=== PATIENT | male | born 1970 | race American Indian/Alaskan Native ===

== ENCOUNTER 2017-01-22 20:27 | Emergency (ER) | payer MEDICAID, OTHER ==
[2017-01-22 20:33] VITALS: BMI 29.9
[2017-01-22 20:37] VITALS: RESP 18; O2SAT 99
[2017-01-22] MEDS ORDERED: Magnesium Citrate Oral SOL (300 ml) PO ONE (20:58)
--- NOTE | 2017-01-22 21:04 | ED PDOC ---
Arrival/HPI - General Chief Complaint: GI Problem Time Seen by Provider: 01/22/17 20:51 Historian: Patient - History of Present Illness Narrative History of Present Illness (Text): 01/22/17 20:59 46 year old male with past medical history that includes hypertension and hemorrhoids presents to the emergency department with constipation for the past three days. He states he did not try any stool softeners. Patient states he has never been constipated before. Patient states he has no abdominal surgeries in the past. Denies nausea or vomiting. Time/Duration: < week Symptom Onset: Gradual Symptom Course: Unchanged Modifying Factors (Text): None Associated Symptoms (Text): None Past Medical History - Provider Review Nursing Documentation Reviewed: Yes - Infectious Disease Hx of Infectious Diseases: None - Cardiac Hx Hypertension: Yes - Psychiatric Hx Depression: No Hx Emotional Abuse: No Hx Physical Abuse: No Hx Substance Use: No - Surgical History Hx Orthopedic Surgery: Yes (LEFT KNEE) - Anesthesia Hx Anesthesia: Yes Hx Anesthesia Reactions: No - Suicidal Assessment Feels Threatened In Home Enviroment: No Family/Social History - Physician Review Nursing Documentation Reviewed: Yes Family/Social History: Unknown Family HX Smoking Status: Light Smoker < 10 Cigarettes Daily Hx Alcohol Use: Yes Frequency of alcohol use: Socially Hx Substance Use: No Hx Substance Use Treatment: No Allergies/Home Meds Allergies/Adverse Reactions: Allergies No Known Allergies Allergy (Verified 06/02/16 09:55) Home Medications: Home Meds Medication Instructions Recorded Confirmed Lisinopril/Hydrochlorothiazide 1 tab PO DAILY 06/02/16 06/02/16 [Lisinopril-Hydrochlorothiazide 25 mg-20 mg] Metoprolol Succinate [Toprol XL] 25 mg PO DAILY 06/02/16 06/02/16 amLODIPine [Norvasc] 10 mg PO DAILY 06/02/16 06/02/16 Review of Systems - Physician Review All systems were reviewed & negative as marked: Yes - Review of Systems Cardiovascular: absent: Chest Pain Gastrointestinal: Constipation. absent: Nausea, Vomiting Neurological: absent: Dizziness Physical Exam - Physical Exam Narrative Physical Exam (Text): Constitutional: No acute distress. Head: Normocephalic. Atraumatic. Eyes: PERRL. ENT: Moist mucous membranes. Neck: Supple. Cardiovascular: Regular rate. Chest: No tenderness. Respiratory: Clear to auscultation bilaterally. GI: Soft. Nontender. Abdomen is full. Back: No CVA tenderness. Musculoskeletal: No tenderness or swelling of extremities. Skin: No rash. Neurologic: Alert, no focal deficit. Vital Signs Reviewed: Yes Vital Signs Temp Pulse Resp BP Pulse Ox 01/23/17 00:28 98.9 F 95 H 18 140/90 99 01/22/17 20:36 100.2 F H 103 H 18 154/112 H 99 Temperature: Febrile Blood Pressure: Hypertensive Pulse: Tachycardic Respiratory Rate: Normal Appearance: Positive for: Well-Appearing, Non-Toxic, Uncomfortable Pain Distress: None Mental Status: Positive for: Alert and Oriented X 3 Medical Decision Making ED Course and Treatment: Impression: 46 year old male with a past medical history that includes hypertension presents to the emergency department with constipation for the past three days. Plan: -- Magnesium Citrate, Colase -- Reassess and disposition Progress Notes: AXR shows no air fluid levels. Patient treated with fleet enema as well. Manual disimpaction revealed no stool within rectum. Advised f/u with GI for further management if persists. - RAD Interpretation Radiology Orders: 01/22/17 22:18 obstructive series [ABD 2 VIEWS (FLAT/UP OR DECUB)] [RAD] Stat - Medication Orders Current Medication Orders: Discontinued Medications Docusate Sodium (Colace) 100 mg PO STAT STA Stop: 01/22/17 20:59 Last Admin: 01/22/17 21:15 Dose: 100 MG Stool Assessment Document 01/22/17 21:15 OCS (Rec: 01/22/17 21:15 [place] [facility] [id number] Pattern Bowel Pattern Constipated Magnesium Citrate (Citrate Of Mag) 300 ml PO ONCE ONE Stop: 01/22/17 20:59 Last Admin: 01/22/17 21:15 Dose: 300 ML Sodium Phosphate (Fleet Enema) 135 ml RC STAT STA Stop: 01/22/17 22:18 Last Admin: 01/23/17 00:22 Dose: 135 ML - Scribe Statement The provider has reviewed the documentation as recorded by the Bisi Ruby Provider Scribe Attestation: All medical record entries made by the Johnsonibfatoumata were at my direction and personally dictated by me. I have reviewed the chart and agree that the record accurately reflects my personal performance of the history, physical exam, medical decision making, and the department course for this patient. I have also personally directed, reviewed, and agree with the discharge instructions and disposition. Disposition/Present on Arrival - Present on Arrival Any Indicators Present on Arrival: No History of DVT/PE: No History of Uncontrolled Diabetes: No Urinary Catheter: No History of Decub. Ulcer: No History Surgical Site Infection Following: None - Disposition Have Diagnosis and Disposition been Completed?: Yes Diagnosis: Constipation Disposition: HOME/ ROUTINE Disposition Time: 22:55 Patient Plan: Discharge Condition: STABLE Discharge Instructions (ExitCare): Constipation (ED) Prescriptions: Docusate [Colace] 100 mg PO BID #30 cap Polyethylene Glycol 3350 [Miralax] 17 gm PO DAILY #238 gm Referrals: Ligia Jaime MD [Primary Care Provider] - Follow up with primary
[2017-01-23 00:29] VITALS: BP 140/90; PULSE 95; TEMP 98.9
--- NOTE | 2017-01-23 11:15 | RAD ---
HISTORY: constipation All constipation. COMPARISON: No prior. FINDINGS: BOWEL: Normal. No obstruction. No free air. BONES: Normal. OTHER FINDINGS: None. IMPRESSION: No significant or acute findings to account for/ related to the clinical presentation. Concordant results with the preliminary interpretation rendered by the emergency department physician procedure.
== END 2017-01-23 00:33 | disposition home or self-care (01) ==
LOC: ED 20:27
DX: K59.00 Constipation, unspecified (principal)

== ENCOUNTER 2017-01-26 04:21 | Inpatient (IN) | payer MEDICAID, OTHER ==
[2017-01-26 04:40] VITALS: BMI 28.1
--- NOTE | 2017-01-26 04:48 | ED PDOC ---
Arrival/HPI - General Chief Complaint: Medical Clearance Time Seen by Provider: 01/26/17 04:35 Historian: Patient - History of Present Illness Narrative History of Present Illness (Text): 01/26/17 04:46 Hardik Callejas Jr is a 46 year old male, whose past medical history includes hypertension and hemorrhoids, who presents to the ED complaining of rectal pain with swelling for the past few days. Patient denies any fever, chills, chest pain, shortness of breath, nausea, vomiting, diarrhea, urinary symptoms, back pain, neck pain, headache, dizziness, or any other complaints. Symptom Onset: Gradual Symptom Course: Worsening Activities at Onset: Rest, Light Context: Home Past Medical History - Provider Review Nursing Documentation Reviewed: Yes - Infectious Disease Hx of Infectious Diseases: None - Cardiac Hx Hypertension: Yes - Psychiatric Hx Depression: No Hx Emotional Abuse: No Hx Physical Abuse: No Hx Substance Use: No - Surgical History Hx Orthopedic Surgery: Yes (LEFT KNEE) - Anesthesia Hx Anesthesia: Yes Hx Anesthesia Reactions: No - Suicidal Assessment Feels Threatened In Home Enviroment: No Family/Social History - Physician Review Nursing Documentation Reviewed: Yes Family/Social History: No Known Family HX Smoking Status: Light Smoker < 10 Cigarettes Daily Hx Alcohol Use: Yes Hx Substance Use: No Hx Substance Use Treatment: No Allergies/Home Meds Allergies/Adverse Reactions: Allergies No Known Allergies Allergy (Verified 01/26/17 04:38) Home Medications: Home Meds Medication Instructions Recorded Confirmed Lisinopril/Hydrochlorothiazide 1 tab PO DAILY 06/02/16 06/02/16 [Lisinopril-Hydrochlorothiazide 25 mg-20 mg] Metoprolol Succinate [Toprol XL] 25 mg PO DAILY 06/02/16 06/02/16 amLODIPine [Norvasc] 10 mg PO DAILY 06/02/16 06/02/16 Review of Systems - Physician Review All systems were reviewed & negative as marked: Yes - Review of Systems Constitutional: Normal. absent: Fevers Eyes: Normal ENT: Normal Respiratory: Normal. absent: SOB, Cough Cardiovascular: Normal. absent: Chest Pain Gastrointestinal: Other (+rectal pain/swelling). absent: Abdominal Pain, Diarrhea, Nausea, Vomiting Genitourinary Male: Normal. absent: Dysuria, Frequency, Hematuria, Urinary Output Changes Musculoskeletal: Normal. absent: Back Pain, Neck Pain Skin: Normal. absent: Rash Neurological: Normal. absent: Headache, Dizziness Endocrine: Normal Hemo/Lymphatic: Normal Psychiatric: Normal Physical Exam Vital Signs Reviewed: Yes Vital Signs Temp Pulse Resp BP Pulse Ox 01/26/17 08:42 99.1 F 121 H 18 145/83 97 01/26/17 06:46 112 H 18 140/78 98 01/26/17 04:40 98.5 F 131 H 18 170/112 H 97 Temperature: Afebrile Blood Pressure: Hypertensive Pulse: Regular Respiratory Rate: Normal Appearance: Positive for: Well-Appearing, Non-Toxic, Comfortable Pain Distress: None Mental Status: Positive for: Alert and Oriented X 3 - Systems Exam Head: Present: Atraumatic, Normocephalic Pupils: Present: PERRL Extroacular Muscles: Present: EOMI Conjunctiva: Present: Normal Mouth: Present: Moist Mucous Membranes Neck: Present: Normal Range of Motion Respiratory/Chest: Present: Clear to Auscultation, Good Air Exchange. No: Respiratory Distress, Accessory Muscle Use Cardiovascular: Present: Regular Rate and Rhythm, Normal S1, S2. No: Murmurs Abdomen: Present: Normal Bowel Sounds. No: Tenderness, Distention, Peritoneal Signs Rectal: Present: Nodule/Mass/Lesions (Cellulitis area with large mass palpated) Back: Present: Normal Inspection Upper Extremity: Present: Normal Inspection. No: Cyanosis, Edema Lower Extremity: Present: Normal Inspection. No: Edema Neurological: Present: GCS=15, CN II-XII Intact, Speech Normal Skin: Present: Warm, Dry, Normal Color. No: Rashes Psychiatric: Present: Alert, Oriented x 3, Normal Insight, Normal Concentration Medical Decision Making ED Course and Treatment: 01/26/17 04:46 Impression: 46 year old male complaining of rectal pain and swelling. Plan: -- CT Pelvis w/o contrast -- Labs, blood cultures -- IV fluids -- Zosyn -- Dilaudid -- Reassess and disposition Prior Visits: Notes and results from previous visits were reviewed. On 01/22/2017, pt was seen in the ED for constipation. Pt was d/c home. Progress Notes: 01/26/17 05:43 Case discussed with surgical technology instructor supervisor bakery sanitation dr escalera , who is aware and agrees with plan. 01/26/17 06:21 Reviewed radiology, CT Pelvis shows: 1. Proctitis with perirectal/anal abscess. 2. Incidental/non-acute findings are described above. 01/26/17 16:29 - Lab Interpretations Lab Results: 01/26/17 05:15 01/26/17 05:15 Lab Results 01/26/17 05:15: WBC 28.0 H*, RBC 4.96, Hgb 14.2, Hct 38.5 L, MCV 77.6 L, MCH 28.6, MCHC 36.9, RDW 13.8, Plt Count 265, MPV 10.4, Neutrophils % (Manual) 90 H , Band Neutrophils % 2, Lymphocytes % (Manual) 3 L, Monocytes % (Manual) 5, Sodium 135, Potassium 4.1, Chloride 95 L, Carbon Dioxide 31, Anion Gap 13, BUN 14, Creatinine 1.1, Est GFR ( Amer) > 60, Est GFR (Non-Af Amer) > 60, Random Glucose 250 H, Calcium 9.9, Total Bilirubin 1.7 H, AST 28, ALT 26, Alkaline Phosphatase 129, Total Protein 7.9, Albumin 3.8, Globulin 4.1, Albumin/ Globulin Ratio 0.9 L I have reviewed the lab results: Yes - RAD Interpretation Narrative RAD Interpretations (Text): CT Pelvis shows: Limitations: Lack of intravenous contrast. Bowel: Distal rectal wall thickening, suboptimally visualized. No obstruction. Appendix: No findings to suggest acute appendicitis. Intraperitoneal space: No significant fluid collection. No free air. Bladder: Unremarkable. No stones. Reproductive: Unremarkable as visualized. Bones/joints: No acute fracture. Soft tissues: Small LEFT inguinal hernia containing fat. Peripheral air/fluid collection about perianal region, roughly 7.1 x 5.5 x 8.6 cm, suboptimally evaluated without contrast. Moderate stranding within adjacent fat. Vasculature: Mild ectasia of common iliac arteries. Kltm-im-cgctluuo atherosclerotic disease. Lymph nodes: No pathologically enlarged lymph nodes. IMPRESSION: 1. Proctitis with perirectal/anal abscess. 2. Incidental/non-acute findings are described above. Radiology Orders: 01/26/17 05:00 PELVIS W/O PO OR IV CONTRAST [CT] Stat Wheelchair Van Driver: Radiologist - Medication Orders Current Medication Orders: Sodium Chloride (Sodium Chloride 0.9%) 1,000 mls @ 150 mls/hr IV .Q6H40M [facility] Last Admin: 01/26/17 07:41 Dose: 150 MLS/HR eMAR Start Stop Document 01/26/17 07:41 OCS (Rec: 01/26/17 07:41 OCS [facility] [id number]) Intravenous Solution Start Date 01/26/17 Start Time 07:41 Piperacillin Sod/Tazobactam Sod (Zosyn 3.375 In Ns 100ml) 100 mls @ 200 mls/hr IVPB Q6 ANALILIA PRN Reason: Protocol Stop: 01/26/17 18:29 Last Admin: 01/26/17 11:50 Dose: 200 MLS/HR eMAR Start Stop Document 01/26/17 11:50 RV (Rec: 01/26/17 11:50 RV [id number]) Intravenous Solution Start Date 01/26/17 Start Time 11:50 End Date 01/26/17 End time 12:50 Total Infusion Time 60 Vancomycin HCl (Vancomycin 1gm) 250 mls @ 167 mls/hr IVPB Q12H ANALILIA PRN Reason: Protocol Last Admin: 01/26/17 10:50 Dose: 167 MLS/HR eMAR Start Stop Document 01/26/17 10:50 RV (Rec: 01/26/17 10:50 RV [id number]) Intravenous Solution Start Date 01/26/17 Start Time 10:50 End Date 01/26/17 End time 11:50 Total Infusion Time 60 Insulin Human Lispro (Humalog Low) 0 units SC ACHS ANALILIA PRN Reason: Protocol Last Admin: 01/26/17 12:04 Dose: Not Given Non-Admin Reason: Blood Sugar Parameter [facility] Blood Glucose Document 01/26/17 12:04 RV (Rec: 01/26/17 12:04 RV [id number]) Blood Glucose Finger Stick Blood Glucose (70-120) 147 Ketorolac Tromethamine (Toradol) 30 mg IVP Q6H PRN PRN Reason: Pain, moderate (4-7) Last Admin: 01/26/17 11:52 Dose: 30 MG [facility] Pain Assessment Document 01/26/17 11:52 RV (Rec: 01/26/17 11:52 RV [id number]) Pain Reassessment Is this a pain reassessment? No Sleep Is patient sleeping during reassessment? No Presence of Pain Presence of Pain Yes Pain Scale Used Pain Scale Used Numeric Location Upper or Lower Lower Description Intensity of Pain at present 8 Radiation Location RECTUM Pain Behavior Moaning Irritability Facial Grimacing Aggravating Factors ADL's Changing Position Alleviating Factors/Management Medication Techniques Alleviating Factors Medication IVP Administration Document 01/26/17 11:52 RV (Rec: 01/26/17 11:52 RV [id number]) Charges for Administration # of IVP Administrations 1 Metoprolol Tartrate (Lopressor) 25 mg PO BID [facility] Nicotine (Nicoderm Cq) 1 patch TD DAILY ANALILIA Pantoprazole Sodium (Protonix Ec Tab) 40 mg PO ACB [facility] Last Admin: 01/26/17 10:42 Dose: 40 MG Discontinued Medications Hydromorphone HCl (Dilaudid) 2 mg IVP STAT STA Stop: 01/26/17 05:01 Last Admin: 01/26/17 05:44 Dose: 2 MG IVP Administration Document 01/26/17 05:44 SB (Rec: 01/26/17 05:44 SB [id number] Charges for Administration # of IVP Administrations 1 Hydromorphone HCl (Dilaudid) Confirm Administered Dose 1 mg .ROUTE .STK-MED ONE Stop: 01/26/17 08:25 Last Admin: 01/26/17 08:40 Dose: 1 MG Hydromorphone HCl (Dilaudid) 1 mg IVP STAT STA Stop: 01/26/17 08:16 Last Admin: 01/26/17 11:48 Dose: Not Given Non-Admin Reason: Patient Refused MAR Pain Assessment Document 01/26/17 11:48 RV (Rec: 01/26/17 11:49 RV [id number]) Pain Reassessment Is this a pain reassessment? No Sleep Is patient sleeping during reassessment? No Presence of Pain Presence of Pain Yes Pain Scale Used Pain Scale Used Numeric Description Description Constant Intensity of Pain at present 2 Acceptable Level of Pain 2 Site Observation RECTUM Sodium Chloride (Sodium Chloride 0.9%) 1,000 mls @ 80 mls/hr IV .[id number] [facility] Last Admin: 01/26/17 05:44 Dose: 80 MLS/HR eMAR Start Stop Document 01/26/17 05:44 SB (Rec: 01/26/17 05:44 SB [id number][facility] Intravenous Solution Start Date 04/02/17 Start Time 05:44 End Date 01/26/17 Piperacillin Sod/Tazobactam Sod (Zosyn 3.375 In Ns 100ml) 100 mls @ 200 mls/hr IVPB STAT STA PRN Reason: Protocol Stop: 01/26/17 05:30 Last Admin: 01/26/17 05:44 Dose: 200 MLS/HR eMAR Start Stop Document 01/26/17 05:44 SB (Rec: 01/26/17 05:44 SB [id number]) Intravenous Solution Start Date 01/26/17 Start Time 05:44 End Date 01/26/17 Sodium Chloride (Sodium Chloride 0.9%) 1,000 mls @ 120 mls/hr IV .Q8H20M [facility] Last Admin: 01/26/17 06:34 Dose: 120 MLS/HR eMAR Start Stop Document 01/26/17 06:34 SB (Rec: 01/26/17 06:34 SB [id number][facility] Intravenous Solution Start Date 01/26/17 Start Time 06:34 End Date 01/26/17 Metronidazole (Flagyl) 100 mls @ 100 mls/hr IVPB STAT STA PRN Reason: Protocol Stop: 01/26/17 07:39 Last Admin: 01/26/17 07:41 Dose: 100 MLS/HR eMAR Start Stop Document 01/26/17 07:41 OCS (Rec: 01/26/17 07:41 [facility]CS [id number][facility] Intravenous Solution Start Date 01/26/17 Start Time 07:41 Insulin Human Regular (Humulin R Med) 0 units SC ACHS ANALILIA PRN Reason: Protocol Lidocaine HCl (Lidocaine 1% (20ml)) 0 ml IJ STAT STA Stop: 01/26/17 07:32 Last Admin: 01/26/17 07:37 Dose: 20 mL - Scribe Statement The provider has reviewed the documentation as recorded by the Scribfatoumata Liang All medical record entries made by the Scribe were at my direction and personally dictated by me. I have reviewed the chart and agree that the record accurately reflects my personal performance of the history, physical exam, medical decision making, and the department course for this patient. I have also personally directed, reviewed, and agree with the discharge instructions and disposition. Disposition/Present on Arrival - Present on Arrival Any Indicators Present on Arrival: No History of DVT/PE: No History of Uncontrolled Diabetes: No Urinary Catheter: No History of Decub. Ulcer: No History Surgical Site Infection Following: None - Disposition Have Diagnosis and Disposition been Completed?: Yes Diagnosis: Perirectal abscess Disposition: HOSPITALIZED Disposition Time: 06:30 Condition: FAIR
[2017-01-26] MEDS ORDERED: HYDROmorphone 2 mg/ml ISec IVP STA (05:00)
[2017-01-26] MEDS ORDERED: Sodium Chloride 0.9% 1,000 ML IV SCH ×2 (05:00→06:30)
[2017-01-26] MEDS ORDERED: Piperacillin/Tazobact 3.375 gm 100 ML IVPB STA (05:01)
[2017-01-26 06:00] LABS: HEMATOCRIT 38.5 % (42.0-52.0); MEAN CELL VOLUME 77.6 fL (80.0-105.0); MEAN CORPUSCULAR HEMOGLOBIN 28.6 pg (25.0-35.0); MEAN CORPUSCULAR HGB CONC 36.9 g/dl (31.0-37.0); MEAN PLATELET VOLUME 10.4 fl (7.0-11.0); PLATELET COUNT 265 10^3/uL (120.0-450.0); RED CELL DISTRIBUTION WIDTH 13.8 % (11.5-14.5)
[2017-01-26 06:02] LABS: ADD MANUAL DIFF? YES
[2017-01-26 06:06] LABS: ALB/GLOB RATIO 0.9 (1.1-1.8); ALKALINE PHOSPHATASE 129 U/L (38-133); ALT/SGPT 26 U/L (7-56); AST/SGOT 28 U/L (15-59); BILIRUBIN,TOTAL 1.7 mg/dL (0.2-1.3); BLOOD UREA NITROGEN 14 mg/dL (7-21); CALCIUM 9.9 mg/dL (8.4-10.5); CARBON DIOXIDE 31 mmol/L (21-33); CHLORIDE 95 mmol/L (98-107); GFR AFRICAN-AMERICAN > 60; GLUCOSE,RANDOM 250 mg/dL (70-110); POTASSIUM 4.1 mmol/L (3.6-5.0); SODIUM 135 mmol/L (132-148); TOTAL PROTEIN 7.9 g/dL (5.8-8.3)
--- NOTE | 2017-01-26 06:20 | CT ---
EXAM: CT Pelvis Without Intravenous Contrast CLINICAL HISTORY: 46 years old, male; Pain; Perianal pain; Additional info: Rectal pain R/O abscess TECHNIQUE: Axial computed tomography images of the pelvis without intravenous contrast. This CT exam was performed using one or more of the following dose reduction techniques: automated exposure control, adjustment of the mA and/or kV according to patient size, and/or use of iterative reconstruction technique. Coronal and sagittal reformatted images were created and reviewed. COMPARISON: No relevant prior studies available. FINDINGS: Limitations: Lack of intravenous contrast. Bowel: Distal rectal wall thickening, suboptimally visualized. No obstruction. Appendix: No findings to suggest acute appendicitis. Intraperitoneal space: No significant fluid collection. No free air. Bladder: Unremarkable. No stones. Reproductive: Unremarkable as visualized. Bones/joints: No acute fracture. Soft tissues: Small LEFT inguinal hernia containing fat. Peripheral air/fluid collection about perianal region, roughly 7.1 x 5.5 x 8.6 cm, suboptimally evaluated without contrast. Moderate stranding within adjacent fat. Vasculature: Mild ectasia of common iliac arteries. Jasu-vu-hnewfgdt atherosclerotic disease. Lymph nodes: No pathologically enlarged lymph nodes. IMPRESSION: 1. Proctitis with perirectal/anal abscess. 2. Incidental/non-acute findings are described above.
[2017-01-26 06:23] LABS: BAND 2 % (0-2); NEUTROPHIL 90 % (50.0-70.0)
[2017-01-26] MEDS ORDERED: metroNIDAZOLE IV 500 mg/100 ml 100 ML IVPB STA (06:40)
--- NOTE | 2017-01-26 07:08 | CP.PCM.CON ---
History of Present Illness - History of Present Illness History of Present Illness: General Surgery Dr. Medeiros HPI: 46 y/o M presents to the ED w/ CC of worsening rectal pain. Pain began on Friday and has been getting progressively worse. Pt went to the ED on Friday and was Dx w/ constipation and sent home w/ stool softeners. Pt reports take the medication but w/ no relief. Pt states he has not been eating 2/2 severe pain w/ BM. Pt has never before had this pain. Pain does not radiate. Pt reports loose/liquid BMs. Pt admits to subjective fever and chills and lightheadedness. Pt denies dysuria, frequency, urgency, or hesitancy, but does admit to dark urine. Pt denies CP, SOB, N/V, abd pain, paresthesia, bruising/ bleeding. PMHx: HTN, DM2, hemorrhoids Meds: reviewed in chart. NKDA PSHx: L knee surgery (dislocated patella) SHx: (+) Tobacco use, 1 pack per week x 20yrs; (+) EtOH 3 beers on weekends; (- ) drug use FHx: denies Review of Systems - Review of Systems All systems: reviewed and no additional remarkable complaints except (that which stated in HPI) Past Patient History - Infectious Disease Hx of Infectious Diseases: None - Past Social History Smoking Status: Light Smoker < 10 Cigarettes Daily - CARDIAC Hx Hypertension: Yes - PSYCHIATRIC Hx Depression: No Hx Emotional Abuse: No Hx Physical Abuse: No Hx Substance Use: No - SURGICAL HISTORY Hx Orthopedic Surgery: Yes (LEFT KNEE) - ANESTHESIA Hx Anesthesia: Yes Hx Anesthesia Reactions: No Meds Allergies/Adverse Reactions: Allergies Allergy/AdvReac Type Severity Reaction Status Date / Time No Known Allergies Allergy Verified 01/26/17 04:38 - Medications Medications: Current Medications Sodium Chloride (Sodium Chloride 0.9%) 1,000 mls @ 150 mls/hr IV .Q6H40M ANALILIA Metronidazole (Flagyl) 100 mls @ 100 mls/hr IVPB STAT STA PRN Reason: Protocol Stop: 01/26/17 07:39 Physical Exam - Constitutional Appears: Non-toxic, No Acute Distress - Head Exam Head Exam: NORMAL INSPECTION - Eye Exam Eye Exam: Normal appearance - ENT Exam ENT Exam: Mucous Membranes Moist - Respiratory Exam Respiratory Exam: Clear to Auscultation Bilateral, NORMAL BREATHING PATTERN. absent: Accessory Muscle Use, Respiratory Distress - Cardiovascular Exam Cardiovascular Exam: Tachycardia, REGULAR RHYTHM, +S1, +S2 - GI/Abdominal Exam GI & Abdominal Exam: Soft. absent: Distended, Guarding, Rebound, Tenderness - Rectal Exam Additional comments: noemí-rectal TTP (+) edema, induration, fluctuance (+) clear discharge per rectum - Extremities Exam Extremities exam: Positive for: normal inspection. Negative for: pedal edema, tenderness - Neurological Exam Neurological exam: Alert, Oriented x3 - Psychiatric Exam Psychiatric exam: Normal Affect, Normal Mood - Skin Skin Exam: Dry, Intact, Normal Color, Warm Results - Vital Signs Recent Vital Signs: Last Vital Signs Temp 98.5 F 01/26/17 04:40 Pulse 112 H 01/26/17 06:46 Resp 18 01/26/17 06:46 BP 140/78 01/26/17 06:46 Pulse Ox 98 01/26/17 06:46 - Labs Result Diagrams: 01/26/17 05:15 01/26/17 05:15 - Imaging and Cardiology CT scan - pelvis Status: Image reviewed by me, Report reviewed by me Assessment & Plan - Assessment and Plan (Free Text) Assessment: 46 y/o M w/ rectal pain found to have noemí-rectal abscess and proctitis on CT. - I&D @bedside - Wound Cx - NPO (advance diet after I&D) - NS@150 - ID consult - IV abx - Dilaudid 1mg Q4 - Zofran 4mg Q4 - daily packing changes - cont home meds per Hospitalist - GI/DVT PPx Pt discussed w/ Dr. Mala Gentile DO PGY1
[2017-01-26] MEDS ORDERED: Lidocaine 1% Inj (20ml) IJ STA ×2 (07:29→07:31)
--- NOTE | 2017-01-26 07:35 | CP.PCM.HP ---
<Kip Flores - Last Filed: 01/26/17 11:34> History of Present Illness - History of Present Illness History of Present Illness: CC: Anal/rectal Pain 46 M with PMH of HTN and hemorrhoids presents to the ED with complaint of worsening anal/rectal pain. Patient stated that pain began on last Friday. He has never experienced pain like this before. He reported that the pain has been getting progressively worse. Tong went to the ED on Friday of last week. He was diagnosed with constipation and sent home on stool softeners. Patient reported taking the stool softners but there was no relief. Patient stated he has not been eating because he was trying to avoid the severe pain asssociated with BMs. He rated the pain 10/10 in severity. He described the pain as constant , sharp, and aching without radiation. Nothing alleviates pain while BMs and certain positions exacerbates it. Patient reported loose/liquid BMs over last couple days. Patient admitted to subjective fever/chills, palpitations and lightheadedness. Patient denies CP, SOB, N/V, abd pain, paresthesia, bruising/ bleeding, dysuria, frequency, urgency, or hesitancy. PMHx: HTN, hemorrhoids Meds: Colace, Miralax Allergy: NKDA PSH: L knee surgery (dislocated patella) FH: Aunt has Sickle cell Social: (+) Tobacco use, 1 pack per week for 20yrs; (+) EtOH 3 beers on weekends ; (-) drug use Present on Admission - Present on Admission Any Indicators Present on Admission: No History of DVT/PE: No History of Uncontrolled Diabetes: No Urinary Catheter: No Decubitus Ulcer Present: No Review of Systems - Review of Systems All systems: reviewed and no additional remarkable complaints except (as per HPI ) Past Patient History - Infectious Disease Hx of Infectious Diseases: None - Past Social History Smoking Status: Light Smoker < 10 Cigarettes Daily - CARDIAC Hx Hypertension: Yes - PSYCHIATRIC Hx Depression: No Hx Emotional Abuse: No Hx Physical Abuse: No Hx Substance Use: No - SURGICAL HISTORY Hx Orthopedic Surgery: Yes (LEFT KNEE) - ANESTHESIA Hx Anesthesia: Yes Hx Anesthesia Reactions: No Meds Allergies/Adverse Reactions: Allergies Allergy/AdvReac Type Severity Reaction Status Date / Time No Known Allergies Allergy Verified 01/26/17 04:38 Physical Exam - Constitutional Appears: Non-toxic, No Acute Distress - Head Exam Head Exam: NORMAL INSPECTION - Eye Exam Eye Exam: EOMI, Normal appearance Pupil Exam: PERRL - ENT Exam ENT Exam: Mucous Membranes Moist - Neck Exam Neck exam: Positive for: Normal Inspection - Respiratory Exam Respiratory Exam: Clear to Auscultation Bilateral, NORMAL BREATHING PATTERN - Cardiovascular Exam Cardiovascular Exam: Tachycardia, REGULAR RHYTHM, +S1, +S2 - GI/Abdominal Exam GI & Abdominal Exam: Normal Bowel Sounds, Soft. absent: Distended, Firm, Guarding, Rebound, Tenderness Additional comments: perianal/perirectal are TTP edema, induraion and fluctuance present with clear drainage - Extremities Exam Extremities exam: Positive for: normal capillary refill, pedal pulses present. Negative for: calf tenderness - Back Exam Back exam: absent: CVA tenderness (L), CVA tenderness (R) - Neurological Exam Neurological exam: Alert, CN II-XII Intact, Oriented x3 - Psychiatric Exam Psychiatric exam: Normal Affect, Normal Mood - Skin Skin Exam: Dry, Intact, Normal Color, Warm Results - Vital Signs Recent Vital Signs: Last Vital Signs Temp 98.5 F 01/26/17 04:40 Pulse 112 H 01/26/17 06:46 Resp 18 01/26/17 06:46 BP 140/78 01/26/17 06:46 Pulse Ox 98 01/26/17 06:46 - Labs Result Diagrams: 01/26/17 05:15 01/26/17 05:15 Assessment & Plan - Assessment and Plan (Free Text) Plan: 1. Perirectal abscess General Surgery consult, Dr. Medeiros, help appreciated ID consult, Dr. Rodrigues, help appreciated I&D drainage at bedside by Dr. Medeiros Wound culture Blood culture NS 150 cc/hr Vancomycin 1 gm [id number] Zosyn 3.375 gm IVPB Q6H Toradol 30 mg IVP Q6H PRN Procalcitonin f/u daily labs 2. Leukocytosis WBC 28 likely from abscess HIV 1&2 ag/ab UDS Procalcitonin f/u daily labs 3. History of HTN Monitor BP Heart healthy, mod carb diet 3. Hyperglycemia Low dose insulin sliding scale Accuchecks HA1C Heart healthy, mod carb diet Monitor 4. Tobacco abuse Nicotine 21 mg/24hrs TD daily 5. Prophylactic Measures Protonix 40 mg PO daily <Maria Eugenia Harris - Last Filed: 01/26/17 16:01> Results - Vital Signs Recent Vital Signs: Last Vital Signs Temp 99.1 F 01/26/17 08:42 Pulse 121 H 01/26/17 08:42 Resp 18 01/26/17 12:19 BP 145/83 01/26/17 08:42 Pulse Ox 97 01/26/17 08:42 - Labs Result Diagrams: 01/26/17 05:15 01/26/17 05:15 Labs: Laboratory Results - last 24 hr 01/26/17 01/26/17 07:36 11:49 PT 12.4 H INR 1.15 H APTT 35.6 H POC Glucose (mg/dL) 147 H Attending/Attestation - Attestation I have personally seen and examined this patient.: Yes I have fully participated in the care of the patient.: Yes I have reviewed all pertinent clinical information: Yes Notes (Text): I have seen and examined patient at bedside. Agree with the note dictated above by resident physician. This is 46 year old male with history of HTN not on any medications, external hemorrhoids, tobacco use, constipation who got admitted with persistent worsening anal and rectal pain and found to have perirectal / perianal abscess. He underwent I&D at the bedside by Dr Coelho. Will start IV antibiotics, IVF, analgesics and heart healthy/ carb consistent diet. Patient is not very co operative with history. Will check a1c and UDS. Start ISS. Dr Maria Eugenia Harris
[2017-01-26] MEDS: Sodium Chloride 0.9% 1,000 ML IV SCH (07:41)
[2017-01-26 07:49] LABS: INR 1.15 (0.93-1.08); PARTIAL THROMBOPLASTIN TIME 35.6 Seconds (23.7-30.8)
[2017-01-26] MEDS ORDERED: HYDROmorphone 1 mg/ml ISec IVP STA (08:15)
[2017-01-26] MEDS ORDERED: HYDROmorphone 1 mg/ml ISec ONE (08:24)
--- NOTE | 2017-01-26 09:28 | RAD ---
HISTORY: pre-op COMPARISON: No prior. FINDINGS: LUNGS: No active pulmonary disease. PLEURA: No significant pleural effusion identified, no pneumothorax apparent. CARDIOVASCULAR: Normal. OSSEOUS STRUCTURES: No significant abnormalities. VISUALIZED UPPER ABDOMEN: Normal. OTHER FINDINGS: None. IMPRESSION: No active disease.
[2017-01-26] MEDS: Pantoprazole 40 mg EC Tab PO SCH (10:42)
--- NOTE | 2017-01-26 10:42 | PCM.PROC ---
- Incision & Drainage Of Abscess Anesthesia: Lidocaine 1% Prep Used: Sterile Water Procedure: Incised W/Scalpel Blade#: (11), Drained Pus, Irrigated Cavity W/ Saline, Probed To Break Up Loculations, Packed W/Gauze (Packed with Packing strips), Cultures Obtained And Sent To Lab
[2017-01-26] MEDS: Vancomycin 1gm in NS 250ml 250 ML IVPB SCH ×2 (10:50→21:44)
[2017-01-26] MEDS ORDERED: Insulin Reg-MEDIUM-Coverage SC SCH (11:30)
[2017-01-26] MEDS ORDERED: Insulin Reg-LOW-Coverage SC SCH (11:30)
[2017-01-26] MEDS ORDERED: Piperacillin/Tazobact 3.375 gm 100 ML IVPB SCH (12:00)
[2017-01-26] MEDS: Insulin Lispro (humaLOG) LOW Coverage SC SCH ×3 (12:04→22:00)
[2017-01-26] MEDS: Piperacillin/Tazobact 3.375 gm 100 ML IVPB SCH ×2 (17:13→23:26)
--- NOTE | 2017-01-26 20:13 | CON ---
DATE: 01/26/2017 The patient is in room 370, bed 2. The patient seen earlier. CHIEF COMPLAINT: Perirectal pain times several days. HISTORY OF PRESENT ILLNESS: This is a 46-year-old male with hypertension, diabetes mellitus, hemorrh oids, and history of tobacco use and beer use, has had a history of left knee surgery, who was admitt ed through the Emergency Room complaining of perirectal pain, found to have a perirectal abscess, was taken to the OR by Dr. Medeiros, had an incision and drainage of the abscess and Dr. Audi Connor admitted the patient with a diagnosis of perirectal abscess and infectious disease consultation requ ested. The patient states that his pain is improved now. There is no chest pain. No abdominal pain , no diarrhea or constipation. No bright red blood per rectum. He did have an episode of constipati on at home. PAST MEDICAL HISTORY: Significant for hypertension, diabetes and hemorrhoids. PAST SURGICAL HISTORY: Significant for left knee surgery. ALLERGIES: The patient has no known allergies. SOCIAL HISTORY: He is a smoker. He drinks occasional beer he states. MEDICATIONS: At home include the patient to be on tramadol, Norvasc and metoprolol, and MiraLax and hydrochlorothiazide. PHYSICAL EXAMINATION: GENERAL: The patient is in bed, answering questions. VITAL SIGNS: Temperature of 98, blood pressure is 170/100, respiratory rate of 18, heart rate of 130 . HEENT: Unremarkable. NECK: Supple. LUNGS: Have decreased breath sounds. HEART: Normal S1, S2. ABDOMEN: Soft and as noted. LABORATORY EXAMINATION: Reveals a white count of 20,000; hemoglobin of 14; platelets of 265. Coagul ation is noted. Chemistries reveal the BUN of 14, creatinine of 1.1, glucose is 147. Cultures from the OR are pending. OR blood cultures are pending. HIV is pending. Hemoglobin A1c is pending. ASSESSMENT AND PLAN: This is a 46-year-old male who is heterosexual, same sexual woman partner for y ears with the exception of another woman he has occasionally, with a history of tobacco use, hemorrho ids, admitted now with sepsis with a perirectal abscess, status post incision and drainage. CAT scan is reviewed and shows a questionable proctitis. We will treat the patient with vancomycin and Zosyn . The patient is also on Flagyl pending panculture initial workup results. We will make further rec ommendations. Benson Rodrigues MD cc: 350 TT: 01/26/2017 20:12:20 Confirmation # [id number] Dictation # [id number] mn
[2017-01-27] MEDS: Sodium Chloride 0.9% 1,000 ML IV SCH (02:00)
[2017-01-27 02:02] VITALS: TEMP 97.9
[2017-01-27] MEDS: Piperacillin/Tazobact 3.375 gm 100 ML IVPB SCH ×2 (05:17→12:35)
[2017-01-27 06:39] LABS: HEMATOCRIT 32.7 % (42.0-52.0); MEAN CELL VOLUME 77.3 fL (80.0-105.0); MEAN CORPUSCULAR HEMOGLOBIN 27.9 pg (25.0-35.0); MEAN CORPUSCULAR HGB CONC 36.1 g/dl (31.0-37.0); MEAN PLATELET VOLUME 10.3 fl (7.0-11.0); PLATELET COUNT 252 10^3/uL (120.0-450.0); RED CELL DISTRIBUTION WIDTH 13.9 % (11.5-14.5); WHITE BLOOD COUNT 21.7 10^3/ul (4.5-11.0)
[2017-01-27 06:45] LABS: ADD MANUAL DIFF? YES
[2017-01-27 06:46] LABS: INR 1.06 (0.93-1.08); PARTIAL THROMBOPLASTIN TIME 35.7 Seconds (23.7-30.8)
[2017-01-27 07:02] LABS: ALB/GLOB RATIO 0.9 (1.1-1.8); ALKALINE PHOSPHATASE 112 U/L (38-133); ALT/SGPT 43 U/L (7-56); AST/SGOT 35 U/L (15-59); BLOOD UREA NITROGEN 20 mg/dL (7-21); CALCIUM 8.8 mg/dL (8.4-10.5); CARBON DIOXIDE 27 mmol/L (21-33); CHLORIDE 103 mmol/L (95-110); GFR AFRICAN-AMERICAN > 60; GLUCOSE,RANDOM 144 mg/dL (70-110); POTASSIUM 3.5 mmol/L (3.6-5.0); SODIUM 138 mmol/L (132-148); TOTAL PROTEIN 6.6 g/dL (5.8-8.3)
[2017-01-27 07:50] LABS: ATYPICAL LYMPHOCYTE 3 % (0.0-0.0); BAND 4 % (0-2)
[2017-01-27 07:51] LABS: METAMYELOCYTE 3 %
[2017-01-27 07:52] LABS: ANISOCYTOSIS 1+; GIANT PLATELETS PRESENT; HYPOCHROMIA 1+; LARGE PLATELETS PRESENT; MICROCYTOSIS 1+; NEUTROPHIL 72 % (50.0-70.0); OVALOCYTES SLIGHT; PLATELET ESTIMATE NORMAL (NORMAL); POLYCHROMASIA SLIGHT
[2017-01-27 07:53] LABS: HYPERSEGMENTED POLYS SLIGHT; POIKILOCYTOSIS SLIGHT; TARGET CELLS SLIGHT
[2017-01-27] MEDS: Insulin Lispro (humaLOG) LOW Coverage SC SCH ×2 (08:08→12:18)
[2017-01-27] MEDS: Pantoprazole 40 mg EC Tab PO SCH (08:21)
[2017-01-27] MEDS: Vancomycin 1gm in NS 250ml 250 ML IVPB SCH (08:21)
[2017-01-27 08:41] VITALS: BP 139/94; PULSE 86; RESP 18; O2SAT 88
--- NOTE | 2017-01-27 13:07 | CP.PCM.PN ---
<Kip Flores - Last Filed: 01/27/17 13:09> Subjective - Date & Time of Evaluation Date of Evaluation: 01/27/17 Time of Evaluation: 08:00 - Subjective Subjective: PGY-1 Medicine Progress Note for Dr. Quintero Patient seen and examined at bedside. No acute vent overnight. Patient resting in bed comfortably. Patient stated that he still has pain. He was complaining that when packing and dressing was changed it caused him excruciating pain. He was also complaining that the night staff has neglected him and did not provide him adequate care. He was threatening to sign out AMA, but after discussing with Dr. Quintero he decided to stay. Patient is tolerating diet and having normal BMs. Denied fever/chills, cp, sob, palpitations, abd pain, n/v/d, incontinence, constipation, numbness/tingling. Objective - Vital Signs/Intake and Output Vital Signs (last 24 hours): Temp Pulse Resp BP Pulse Ox 97.9 F 86 18 139/94 H 88 L 01/27/17 06:00 01/27/17 06:00 01/27/17 06:00 01/27/17 06:00 01/27/17 06:00 Intake and Output: 01/27/17 01/27/17 06:59 18:59 Intake Total 2210 240 Output Total 450 Balance 1760 240 - Medications Medications: Current Medications Sodium Chloride (Sodium Chloride 0.9%) 1,000 mls @ 150 mls/hr IV .Q6H40M [facility] Last Admin: 01/27/17 02:00 Dose: 150 mls/hr Vancomycin HCl (Vancomycin 1gm) 250 mls @ 167 mls/hr IVPB Q12H [facility] PRN Reason: Protocol Last Admin: 01/27/17 08:21 Dose: 167 mls/hr Piperacillin Sod/Tazobactam Sod (Zosyn 3.375 In Ns 100ml) 100 mls @ 200 mls/hr IVPB Q6 [facility] PRN Reason: Protocol Stop: 02/09/17 18:01 Last Admin: 01/27/17 12:35 Dose: 200 mls/hr Insulin Human Lispro (Humalog Low) 0 units SC ACHS [facility] PRN Reason: Protocol Last Admin: 01/27/17 12:18 Dose: Not Given Ketorolac Tromethamine (Toradol) 30 mg IVP Q6H PRN PRN Reason: Pain, moderate (4-7) Last Admin: 01/26/17 17:14 Dose: 30 mg Metoprolol Tartrate (Lopressor) 25 mg PO BID [facility] Last Admin: 01/27/17 09:38 Dose: 25 mg Nicotine (Nicoderm Cq) 1 patch TD DAILY [facility] Last Admin: 01/27/17 09:38 Dose: Not Given Pantoprazole Sodium (Protonix Ec Tab) 40 mg PO ACB [facility] Last Admin: 01/27/17 08:21 Dose: 40 mg - Labs Labs: 01/27/17 06:00 01/27/17 06:00 PT 11.5 Seconds (9.9-11.8) 01/27/17 06:00 INR 1.06 (0.93-1.08) 01/27/17 06:00 APTT 35.7 Seconds (23.7-30.8) H 01/27/17 06:00 - Constitutional Appears: Agitated - Head Exam Head Exam: ATRAUMATIC, NORMOCEPHALIC - Eye Exam Eye Exam: EOMI, Normal appearance Pupil Exam: PERRL - ENT Exam ENT Exam: Mucous Membranes Moist - Neck Exam Neck Exam: Normal Inspection - Respiratory Exam Respiratory Exam: Clear to Ausculation Bilateral, NORMAL BREATHING PATTERN - Cardiovascular Exam Cardiovascular Exam: RRR, +S1, +S2 - GI/Abdominal Exam GI & Abdominal Exam: Soft, Tenderness (perianal/perirectal are TTP), Normal Bowel Sounds. absent: Distended, Firm, Guarding, Rebound Additional comments: dressing on buttock freshly changed, clean/dry/intact - Extremities Exam Extremities Exam: Normal Capillary Refill - Back Exam Back Exam: absent: CVA tenderness (L), CVA tenderness (R) - Neurological Exam Neurological Exam: Alert, Awake, CN II-XII Intact, Normal Gait, Oriented x3 - Psychiatric Exam Psychiatric exam: Normal Affect, Normal Mood - Skin Skin Exam: Dry, Intact, Normal Color, Warm Assessment and Plan - Assessment and Plan (Free Text) Plan: 1. Perirectal abscess General Surgery consult, Dr. Medeiros, help appreciated ID consult, Dr. Rodrigues, help appreciated I&D drainage at bedside by Dr. Medeiros Wound culture: Gram (-) rods and Group F strep Blood culture NS 150 cc/hr Vancomycin 1 gm IVPB Q12H Zosyn 3.375 gm IVPB Q6H Toradol 30 mg IVP Q6H PRN Procalcitonin 0.58 f/u daily labs 2. Leukocytosis WBC downtrending likely from abscess HIV 1&2 ag/ab UDS Procalcitonin f/u daily labs 3. History of HTN Monitor BP Heart healthy, mod carb diet 3. Hyperglycemia Low dose insulin sliding scale Accuchecks HA1C 6.9 Heart healthy, mod carb diet Monitor 4. Tobacco abuse Nicotine 21 mg/24hrs TD daily 5. Prophylactic Measures Protonix 40 mg PO daily <Lopez Quintero - Last Filed: 01/27/17 16:31> Objective - Vital Signs/Intake and Output Vital Signs (last 24 hours): Temp Pulse Resp BP Pulse Ox 97.9 F 86 18 139/94 H 88 L 01/27/17 06:00 01/27/17 06:00 01/27/17 06:00 01/27/17 06:00 01/27/17 06:00 Intake and Output: 01/27/17 01/27/17 06:59 18:59 Intake Total 2210 480 Output Total 450 Balance 1760 480 - Labs Labs: 01/27/17 06:00 01/27/17 06:00 PT 11.5 Seconds (9.9-11.8) 01/27/17 06:00 INR 1.06 (0.93-1.08) 01/27/17 06:00 APTT 35.7 Seconds (23.7-30.8) H 01/27/17 06:00 Assessment and Plan - Assessment and Plan (Free Text) Assessment: attending note; I have seen and examined patient at bedside. patient wanted to go home since yesterday. This is a 46 year old male with history of HTN, external hemorrhoids, tobacco use, constipation who got admitted with persistent worsening anal and rectal pain and found to have perirectal / perianal abscess. He underwent I&D at the bedside. Currently getting dressing change by surgery. Leukocytosis is improving. Patient is afebrile and nontoxic. culture is pending. Currently on IV vancomycin and Zosyn. Mildly elevated blood sugar level. Hemoglobin A1c 6.9. Dietary education given. Needs close follow-up as outpatient. The diagnosis of perirectal abscess/need for dressing change/Wound Care and IV Antibiotics explained in detail multiple times. Attending/Attestation - Attestation I have personally seen and examined this patient.: Yes I have fully participated in the care of the patient.: Yes I have reviewed all pertinent clinical information, including history, physical exam and plan: Yes
--- NOTE | 2017-01-27 13:44 | CP.PCM.PN ---
Subjective - Date & Time of Evaluation Date of Evaluation: 01/27/17 Time of Evaluation: 07:00 - Subjective Subjective: General Surgery Progress Note for Dr. Medeiros This 46M was seen and examined this AM at bedside. He reports no acute events overnight. His packing was changed this AM at bedside. The patient complains of swelling and tenderness by his incision. He denies any fevers chills chest pain or SOB. Objective - Vital Signs/Intake and Output Vital Signs (last 24 hours): Temp Pulse Resp BP Pulse Ox 97.9 F 86 18 139/94 H 88 L 01/27/17 06:00 01/27/17 06:00 01/27/17 06:00 01/27/17 06:00 01/27/17 06:00 Intake and Output: 01/27/17 01/27/17 06:59 18:59 Intake Total 2210 480 Output Total 450 Balance 1760 480 - Medications Medications: Current Medications Sodium Chloride (Sodium Chloride 0.9%) 1,000 mls @ 150 mls/hr IV .Q6H40M [facility] Last Admin: 01/27/17 02:00 Dose: 150 mls/hr Vancomycin HCl (Vancomycin 1gm) 250 mls @ 167 mls/hr IVPB Q12H [facility] PRN Reason: Protocol Last Admin: 01/27/17 08:21 Dose: 167 mls/hr Piperacillin Sod/Tazobactam Sod (Zosyn 3.375 In Ns 100ml) 100 mls @ 200 mls/hr IVPB Q6 [facility] PRN Reason: Protocol Stop: 02/09/17 18:01 Last Admin: 01/27/17 12:35 Dose: 200 mls/hr Insulin Human Lispro (Humalog Low) 0 units SC ACHS [facility] PRN Reason: Protocol Last Admin: 01/27/17 12:18 Dose: Not Given Ketorolac Tromethamine (Toradol) 30 mg IVP Q6H PRN PRN Reason: Pain, moderate (4-7) Last Admin: 01/26/17 17:14 Dose: 30 mg Metoprolol Tartrate (Lopressor) 25 mg PO BID [facility] Last Admin: 01/27/17 09:38 Dose: 25 mg Nicotine (Nicoderm Cq) 1 patch TD DAILY [facility] Last Admin: 01/27/17 09:38 Dose: Not Given Pantoprazole Sodium (Protonix Ec Tab) 40 mg PO ACB [facility] Last Admin: 01/27/17 08:21 Dose: 40 mg - Labs Labs: 01/27/17 06:00 01/27/17 06:00 PT 11.5 Seconds (9.9-11.8) 01/27/17 06:00 INR 1.06 (0.93-1.08) 01/27/17 06:00 APTT 35.7 Seconds (23.7-30.8) H 01/27/17 06:00 - Constitutional Appears: Well, Non-toxic - Head Exam Head Exam: ATRAUMATIC, NORMOCEPHALIC - Eye Exam Eye Exam: EOMI, Normal appearance - Respiratory Exam Respiratory Exam: NORMAL BREATHING PATTERN - Cardiovascular Exam Cardiovascular Exam: +S1, +S2 - GI/Abdominal Exam GI & Abdominal Exam: Soft - Rectal Exam Rectal Exam: NORMAL INSPECTION Additional comments: Perirectal packing in place, draining serosanguinous fluid. - Neurological Exam Neurological Exam: Alert, Awake - Psychiatric Exam Psychiatric exam: Normal Affect, Normal Mood - Skin Skin Exam: Dry, Intact, Normal Color Assessment and Plan - Assessment and Plan (Free Text) Assessment: This is a 46M with a PMH of DM, HTN, and hemorrhoids who is POD#1 S/P Incision and drainage of noemí rectal abscess. VSS WBC trending down 28.0 -->21.7 Continue packing changes, goal is to teach how to change packing DC fluids Continue medical management per primary team. D/W Dr. Medeiros
--- NOTE | 2017-01-27 14:10 | CP.PCM.DIS ---
<Kip Flores - Last Filed: 01/27/17 14:03> Provider - Provider Date of Admission: 01/26/17 06:22 Attending physician: Lopez Quintero MD Consults: Surgery: Pauline ID: [email or web address] Time Spent in preparation of Discharge (in minutes): 40 Diagnosis - Discharge Diagnosis (1) Perirectal abscess Status: Acute Comment: see hospital course Hospital Course - Lab Results Lab Results: Micro Results 01/26/17 08:51 Abscess - Perirectal Gram Stain - Final 01/26/17 08:51 Abscess - Perirectal Wound Culture - Preliminary Gram Negative David Group F Streptococcus 01/26/17 06:39 Blood-Venous Blood Culture - Preliminary NO GROWTH AFTER 24 HOURS Most Recent Lab Values WBC 21.7 10^3/ul (4.5-11.0) H D 01/27/17 06:00 RBC 4.23 10^6/uL (3.5-6.1) 01/27/17 06:00 Hgb 11.8 gm/dL (14.0-18.0) L 01/27/17 06:00 Hct 32.7 % (42.0-52.0) L 01/27/17 06:00 MCV 77.3 fL (80.0-105.0) L 01/27/17 06:00 MCH 27.9 pg (25.0-35.0) 01/27/17 06:00 MCHC 36.1 g/dl (31.0-37.0) 01/27/17 06:00 RDW 13.9 % (11.5-14.5) 01/27/17 06:00 Plt Count 252 10^3/uL (120.0-450.0) 01/27/17 06:00 MPV 10.3 fl (7.0-11.0) 01/27/17 06:00 Neutrophils % (Manual) 72 % (50.0-70.0) H 01/27/17 06:00 Band Neutrophils % 4 % (0-2) H 01/27/17 06:00 Lymphocytes % (Manual) 10 % (22.0-35.0) L 01/27/17 06:00 Atypical Lymphs % 3 % (0.0-0.0) H 01/27/17 06:00 Monocytes % (Manual) 8 % (1.0-6.0) H 01/27/17 06:00 Metamyelocytes % 3 % 01/27/17 06:00 Hypersegmented Polys Slight 01/27/17 06:00 Platelet Evaluation Normal (NORMAL) 01/27/17 06:00 Large Platelets Present 01/27/17 06:00 Giant Platelets Present 01/27/17 06:00 Polychromasia Slight 01/27/17 06:00 Hypochromasia 1+ 01/27/17 06:00 Poikilocytosis (manual Slight 01/27/17 06:00 Anisocytosis (manual) 1+ 01/27/17 06:00 Microcytosis (manual) 1+ 01/27/17 06:00 Target Cells Slight 01/27/17 06:00 Ovalocytes Slight 01/27/17 06:00 PT 11.5 Seconds (9.9-11.8) 01/27/17 06:00 INR 1.06 (0.93-1.08) 01/27/17 06:00 APTT 35.7 Seconds (23.7-30.8) H 01/27/17 06:00 Sodium 138 mmol/L (132-148) 01/27/17 06:00 Potassium 3.5 mmol/L (3.6-5.0) L 01/27/17 06:00 Chloride 103 mmol/L (95-110) 01/27/17 06:00 Carbon Dioxide 27 mmol/L (21-33) 01/27/17 06:00 Anion Gap 12 (10-20) 01/27/17 06:00 BUN 20 mg/dL (7-21) 01/27/17 06:00 Creatinine 0.9 mg/dL (0.5-1.4) 01/27/17 06:00 Est GFR ( Amer) > 60 01/27/17 06:00 Est GFR (Non-Af Amer) > 60 01/27/17 06:00 POC Glucose (mg/dL) 173 mg/dL (65-110) H 01/27/17 11:25 Random Glucose 144 mg/dL (70-110) H 01/27/17 06:00 Hemoglobin A1c 6.9 % (4.2-6.5) H 01/26/17 07:30 Calcium 8.8 mg/dL (8.4-10.5) 01/27/17 06:00 Total Bilirubin 1.0 mg/dL (0.2-1.3) 01/27/17 06:00 AST 35 U/L (15-59) 01/27/17 06:00 ALT 43 U/L (7-56) 01/27/17 06:00 Alkaline Phosphatase 112 U/L (38-133) 01/27/17 06:00 Total Protein 6.6 g/dL (5.8-8.3) 01/27/17 06:00 Albumin 3.1 g/dL (3.0-4.8) 01/27/17 06:00 Globulin 3.4 gm/dL 01/27/17 06:00 Albumin/Globulin Ratio 0.9 (1.1-1.8) L 01/27/17 06:00 Procalcitonin 0.58 NG/ML (0.19-0.49) H 01/26/17 12:00 HIV 1&2 Ag/Ab, 4th Gen Nonreactive (Nonreactive) 01/26/17 12:00 - Hospital Course Hospital Course: 46 M with PMH of HTN and hemorrhoids presents to the ED with complaint of worsening anal/rectal pain. Patient stated that pain began on last Friday. He has never experienced pain like this before. He reported that the pain has been getting progressively worse. Tong went to the ED on Friday of last week. He was diagnosed with constipation and sent home on stool softeners. Patient reported taking the stool softners but there was no relief. Patient stated he has not been eating because he was trying to avoid the severe pain asssociated with BMs. He rated the pain 10/10 in severity. He described the pain as constant , sharp, and aching without radiation. Nothing alleviates pain while BMs and certain positions exacerbates it. Patient reported loose/liquid BMs over last couple days. Patient admitted to subjective fever/chills, palpitations and lightheadedness. Patient denies CP, SOB, N/V, abd pain, paresthesia, bruising/ bleeding, dysuria, frequency, urgency, or hesitancy. Patient was admitted for Anorectal abscess. Bedside I&D was done by Dr. Medeiros. Wound culture and Blood cultures were sent. Patient was started on Vancomycin and Zosyn for broad spectrum coverage. IV fluids and toradol were also started. UDS, HIV, and Procalcitonin tests were drawn. Patient had history of diabetes so low dose insulin sliding scale was started. HA1C was checked and patient started on heart healthy moderate carb consistency diet. He is a frequent smoker so Nicoderm patch was ordered. The next day (01/27), patient stated that he still has pain. He was complaining that when packing and dressing was changed it caused him excruciating pain. He was also complaining that the night staff has neglected him and did not provide him adequate care. He was threatening to sign out AMA, but after discussing with Dr. Quintero he decided to stay. Several hours later, patient changed his mind. After thorough discussion with attending and resident, patient refused to stay so he signed out against medical advice. As a courtesy, prescriptions for Ciprofloxacin and Flagyl were given. Discharge Plan - Discharge Medications Prescriptions: Ciprofloxacin [Cipro] 500 mg PO BID #20 tab Metronidazole [Flagyl] 500 mg PO TID #30 tablet - Follow Up Plan Condition: FAIR Disposition: AGAINST MEDICAL ADVICE <Lopez Quintero - Last Filed: 01/27/17 16:07> Provider - Provider Date of Admission: 01/26/17 06:22 Attending physician: Lopez Quintero MD Time Spent in preparation of Discharge (in minutes): 35 Hospital Course - Lab Results Lab Results: Micro Results 01/26/17 08:51 Abscess - Perirectal Gram Stain - Final 01/26/17 08:51 Abscess - Perirectal Wound Culture - Preliminary Gram Negative David Group F Streptococcus 01/26/17 06:39 Blood-Venous Blood Culture - Preliminary NO GROWTH AFTER 24 HOURS Most Recent Lab Values WBC 21.7 10^3/ul (4.5-11.0) H D 01/27/17 06:00 RBC 4.23 10^6/uL (3.5-6.1) 01/27/17 06:00 Hgb 11.8 gm/dL (14.0-18.0) L 01/27/17 06:00 Hct 32.7 % (42.0-52.0) L 01/27/17 06:00 MCV 77.3 fL (80.0-105.0) L 01/27/17 06:00 MCH 27.9 pg (25.0-35.0) 01/27/17 06:00 MCHC 36.1 g/dl (31.0-37.0) 01/27/17 06:00 RDW 13.9 % (11.5-14.5) 01/27/17 06:00 Plt Count 252 10^3/uL (120.0-450.0) 01/27/17 06:00 MPV 10.3 fl (7.0-11.0) 01/27/17 06:00 Neutrophils % (Manual) 72 % (50.0-70.0) H 01/27/17 06:00 Band Neutrophils % 4 % (0-2) H 01/27/17 06:00 Lymphocytes % (Manual) 10 % (22.0-35.0) L 01/27/17 06:00 Atypical Lymphs % 3 % (0.0-0.0) H 01/27/17 06:00 Monocytes % (Manual) 8 % (1.0-6.0) H 01/27/17 06:00 Metamyelocytes % 3 % 01/27/17 06:00 Hypersegmented Polys Slight 01/27/17 06:00 Platelet Evaluation Normal (NORMAL) 01/27/17 06:00 Large Platelets Present 01/27/17 06:00 Giant Platelets Present 01/27/17 06:00 Polychromasia Slight 01/27/17 06:00 Hypochromasia 1+ 01/27/17 06:00 Poikilocytosis (manual Slight 01/27/17 06:00 Anisocytosis (manual) 1+ 01/27/17 06:00 Microcytosis (manual) 1+ 01/27/17 06:00 Target Cells Slight 01/27/17 06:00 Ovalocytes Slight 01/27/17 06:00 PT 11.5 Seconds (9.9-11.8) 01/27/17 06:00 INR 1.06 (0.93-1.08) 01/27/17 06:00 APTT 35.7 Seconds (23.7-30.8) H 01/27/17 06:00 Sodium 138 mmol/L (132-148) 01/27/17 06:00 Potassium 3.5 mmol/L (3.6-5.0) L 01/27/17 06:00 Chloride 103 mmol/L (95-110) 01/27/17 06:00 Carbon Dioxide 27 mmol/L (21-33) 01/27/17 06:00 Anion Gap 12 (10-20) 01/27/17 06:00 BUN 20 mg/dL (7-21) 01/27/17 06:00 Creatinine 0.9 mg/dL (0.5-1.4) 01/27/17 06:00 Est GFR ( Amer) > 60 01/27/17 06:00 Est GFR (Non-Af Amer) > 60 01/27/17 06:00 POC Glucose (mg/dL) 173 mg/dL (65-110) H 01/27/17 11:25 Random Glucose 144 mg/dL (70-110) H 01/27/17 06:00 Hemoglobin A1c 6.9 % (4.2-6.5) H 01/26/17 07:30 Calcium 8.8 mg/dL (8.4-10.5) 01/27/17 06:00 Total Bilirubin 1.0 mg/dL (0.2-1.3) 01/27/17 06:00 AST 35 U/L (15-59) 01/27/17 06:00 ALT 43 U/L (7-56) 01/27/17 06:00 Alkaline Phosphatase 112 U/L (38-133) 01/27/17 06:00 Total Protein 6.6 g/dL (5.8-8.3) 01/27/17 06:00 Albumin 3.1 g/dL (3.0-4.8) 01/27/17 06:00 Globulin 3.4 gm/dL 01/27/17 06:00 Albumin/Globulin Ratio 0.9 (1.1-1.8) L 01/27/17 06:00 Procalcitonin 0.58 NG/ML (0.19-0.49) H 01/26/17 12:00 HIV 1&2 Ag/Ab, 4th Gen Nonreactive (Nonreactive) 01/26/17 12:00 - Hospital Course Hospital Course: attending note; I have seen and examined patient at bedside. patient wanted to go home since yesterday. This is a 46 year old male with history of HTN, external hemorrhoids, tobacco use, constipation who got admitted with persistent worsening anal and rectal pain and found to have perirectal / perianal abscess. He underwent I&D at the bedside. Currently getting dressing change by surgery. Leukocytosis is improving. Patient is afebrile and nontoxic. culture is pending. Currently on IV vancomycin and Zosyn. Mildly elevated blood sugar level. Hemoglobin A1c 6.9. Dietary education given. Needs close follow-up as outpatient. The diagnosis of perirectal abscess/need for dressing change/Wound Care and IV Antibiotics explained in detail multiple times. patient signed AMA. Diagnosis; perirectal abscess status post incision and drainage Diabetes noncompliance with follow-up
--- NOTE | 2017-01-27 17:52 | CP.PCM.PN ---
Subjective - Date & Time of Evaluation Date of Evaluation: 01/27/17 Time of Evaluation: 09:55 - Subjective Subjective: Less pain in the perirectal area, no fevers, no diarrhea. Objective - Vital Signs/Intake and Output Vital Signs (last 24 hours): Temp Pulse Resp BP Pulse Ox 97.9 F 86 18 139/94 H 88 L 01/27/17 06:00 01/27/17 06:00 01/27/17 06:00 01/27/17 06:00 01/27/17 06:00 Intake and Output: 01/27/17 01/27/17 06:59 18:59 Intake Total 2210 480 Output Total 450 Balance 1760 480 - Labs Labs: 01/27/17 06:00 01/27/17 06:00 PT 11.5 Seconds (9.9-11.8) 01/27/17 06:00 INR 1.06 (0.93-1.08) 01/27/17 06:00 APTT 35.7 Seconds (23.7-30.8) H 01/27/17 06:00 - Constitutional Appears: Non-toxic, No Acute Distress - Head Exam Head Exam: NORMAL INSPECTION - ENT Exam ENT Exam: Mucous Membranes Moist - Neck Exam Neck Exam: absent: Lymphadenopathy, Meningismus - Respiratory Exam Respiratory Exam: Decreased Breath Sounds - Cardiovascular Exam Cardiovascular Exam: +S1, +S2 - GI/Abdominal Exam GI & Abdominal Exam: Soft. absent: Tenderness Assessment and Plan - Assessment and Plan (Free Text) Plan: Assessment Sepsis secondary to perirectal abscess S/P I and D POD #2, growing gram negative bacilli and Group F Strep S/P left knee surgery HTN DM history of hemorrhoids Plan Continue Vancomycin and Zosyn pending final culture results
== END 2017-01-27 14:46 | disposition left against medical advice (07) | DRG 854 ==
LOC: ED 04:21 → ERH 06:22 → 3RSO 09:36
PROVIDERS: ADMIT Hospitalist; ATTEND Internal Medicine
PROC: 0D9P7ZZ Drainage of Rectum, Via Natural or Artificial Opening (ICD-10-PCS; principal; 2017-01-26)
DX: A40.8 Other streptococcal sepsis (principal); K61.2 Anorectal abscess; E11.65 Type 2 diabetes mellitus with hyperglycemia; I10 Essential (primary) hypertension; F17.200 Nicotine dependence, unspecified, uncomplicated; K59.00 Constipation, unspecified; K64.9 Unspecified hemorrhoids; K62.89 Other specified diseases of anus and rectum; R00.0 Tachycardia, unspecified; Z79.899 Other long term (current) drug therapy; Z91.19 Patient's noncompliance with other medical treatment and regimen; Z83.2 Family history of diseases of the blood and blood-forming organs and certain disorders involving the immune mechanism

== ENCOUNTER 2018-02-23 12:06 | Emergency (ER) | payer MEDICAID ==
[2018-02-23 12:46] VITALS: BMI 29.7
[2018-02-23 12:49] VITALS: RESP 18; TEMP 98.3
[2018-02-23] MEDS ORDERED: Naproxen 550 mg Tab PO STA (13:12)
--- NOTE | 2018-02-23 13:17 | ED PDOC ---
Arrival/HPI - General Time Seen by Provider: 02/23/18 12:35 Historian: Patient - History of Present Illness Narrative History of Present Illness (Text): 02/23/18 13:10 47 year old male, whose PMH includes chronic lower back pain, who presents to the emergency department complaining of lower back pain for a few years that has become worse. Patient denies other complaints. Symptom Onset: Gradual Symptom Course: Unchanged Past Medical History - Provider Review Nursing Documentation Reviewed: Yes - Infectious Disease Hx of Infectious Diseases: None - Cardiac Hx Hypertension: Yes - Musculoskeletal/Rheumatological Hx Falls: No - Psychiatric Hx Depression: No Hx Emotional Abuse: No Hx Physical Abuse: No Hx Substance Use: No - Surgical History Hx Orthopedic Surgery: Yes (LEFT KNEE) - Anesthesia Hx Anesthesia: Yes Hx Anesthesia Reactions: No - Suicidal Assessment Feels Threatened In Home Enviroment: No Family/Social History - Physician Review Nursing Documentation Reviewed: Yes Family/Social History: Unknown Family HX Smoking Status: Light Smoker < 10 Cigarettes Daily Hx Alcohol Use: Yes Hx Substance Use: No Hx Substance Use Treatment: No Allergies/Home Meds Allergies/Adverse Reactions: Allergies No Known Allergies Allergy (Verified 02/23/18 13:14) Home Medications: Home Meds Medication Instructions Recorded Confirmed Lisinopril/Hydrochlorothiazide 1 tab PO DAILY 06/02/16 02/23/18 [Lisinopril-Hydrochlorothiazide 25 mg-20 mg] amLODIPine [Norvasc] 10 mg PO DAILY 06/02/16 02/23/18 metFORMIN ER [glucoPHAGE XR] 500 mg PO BID 02/23/18 02/23/18 Review of Systems - Physician Review All systems were reviewed & negative as marked: Yes - Review of Systems Constitutional: absent: Fevers Respiratory: absent: SOB Cardiovascular: absent: Chest Pain Musculoskeletal: Back Pain Physical Exam Vital Signs Reviewed: Yes Vital Signs Temp Pulse Resp BP Pulse Ox 02/23/18 14:28 86 18 131/76 98 02/23/18 12:48 98.3 F 89 18 127/85 99 Temperature: Afebrile Blood Pressure: Normal Pulse: Regular Respiratory Rate: Normal Appearance: Positive for: Well-Appearing, Non-Toxic, Comfortable Pain Distress: None Mental Status: Positive for: Alert and Oriented X 3 - Systems Exam Head: Present: Atraumatic, Normocephalic Pupils: Present: PERRL Extroacular Muscles: Present: EOMI Conjunctiva: Present: Normal Mouth: Present: Moist Mucous Membranes Respiratory/Chest: Present: Clear to Auscultation, Good Air Exchange. No: Respiratory Distress, Accessory Muscle Use Cardiovascular: Present: Regular Rate and Rhythm, Normal S1, S2. No: Murmurs Back: No: Midline Tenderness, Paraspinal Tenderness, Pain with Leg Raise Neurological: Present: GCS=15, CN II-XII Intact, Speech Normal Skin: Present: Warm, Dry, Normal Color. No: Rashes Psychiatric: Present: Alert, Oriented x 3, Normal Insight, Normal Concentration Medical Decision Making ED Course and Treatment: 02/23/18 Impression: 47 year old male with unremarkable physical exam complaining of lower back pain. Plan: -- Flexeril and Anaprox -- Urinalysis -- Reassess and disposition Progress Notes: 02/23/18 14:37 no [email or web address] neg imaging as per pt. neuro intact. steady gait. later requests eval for "anal leakage", but refuses rectal. adivse outpt fu. - Lab Interpretations Lab Results: Lab Results 02/23/18 13:20: Urine Color Yellow, Urine Appearance Clear, Urine pH 7.0, Ur Specific [place] 1.020, Urine Protein Trace H, Urine Glucose (UA) Negative, Urine Ketones Negative, Urine Blood Negative, Urine Nitrate Negative, Urine Bilirubin Negative, Urine Urobilinogen 1.0 H, Ur Leukocyte Esterase Negative, Urine RBC 0 - 2, Urine WBC 0 - 2, Ur Epithelial Cells None, Urine Bacteria Mod - Medication Orders Current Medication Orders: Discontinued Medications Cyclobenzaprine HCl (Flexeril) 10 mg PO STAT STA Stop: 02/23/18 13:13 Last Admin: 02/23/18 13:35 Dose: 10 mg Naproxen (Anaprox Ds) 550 mg PO STAT STA Stop: 02/23/18 13:13 Last Admin: 02/23/18 13:36 Dose: 550 mg - Scribe Statement The provider has reviewed the documentation as recorded by the Bisi Aparicio Provider Scribe Attestation: All medical record entries made by the Johnsonibfatoumata were at my direction and personally dictated by me. I have reviewed the chart and agree that the record accurately reflects my personal performance of the history, physical exam, medical decision making, and the department course for this patient. I have also personally directed, reviewed, and agree with the discharge instructions and disposition. Disposition/Present on Arrival - Present on Arrival Any Indicators Present on Arrival: No History of DVT/PE: No History of Uncontrolled Diabetes: No Urinary Catheter: No History Surgical Site Infection Following: None - Disposition Have Diagnosis and Disposition been Completed?: Yes Diagnosis: Back pain Disposition: HOME/ ROUTINE Disposition Time: 02:00 Condition: STABLE Discharge Instructions (ExitCare): Low Back Pain (DC) Additional Instructions: please follow up with your doctor. return to emergency room with worsening symptoms or concerns. Prescriptions: Cyclobenzaprine [Cyclobenzaprine HCl] 10 mg PO DAILY PRN #10 tab PRN Reason: Muscle Spasm Naproxen 500 mg PO BID PRN #14 tablet PRN Reason: Pain, Mild (1-3) Referrals: Mihaela Jaime MD [Primary Care Provider] - Follow up with primary Forms: [employer] ([place]ian)
[2018-02-23 13:37] LABS: URINE BILIRUBIN NEGATIVE (NEGATIVE); URINE BLOOD NEGATIVE (NEGATIVE); URINE GLUCOSE (UA) NEGATIVE (NEGATIVE); URINE LEUKOCYTE ESTERASE NEGATIVE Leu/uL (NEGATIVE); URINE PROTEIN TRACE mg/dL (<30 mg/dL)
[2018-02-23 13:42] LABS: URINE APPEARANCE CLEAR (CLEAR); URINE COLOR YELLOW (YELLOW)
[2018-02-23 13:54] LABS: URINE RBC 0 - 2 /hpf (0-2)
[2018-02-23 13:55] LABS: URINE BACTERIA MOD (NEG); URINE WBC 0 - 2 /hpf (0-6)
[2018-02-23 14:30] VITALS: BP 131/76; PULSE 86; O2SAT 98
== END 2018-02-23 14:10 | disposition home or self-care (01) ==
LOC: ED 12:06
DX: M54.5 Low back pain (principal); I10 Essential (primary) hypertension; F17.210 Nicotine dependence, cigarettes, uncomplicated

== ENCOUNTER 2018-06-10 10:11 | Emergency (ER) | payer MEDICAID ==
[2018-06-10 10:13] VITALS: BMI 29.3
[2018-06-10 10:18] VITALS: RESP 16; O2SAT 98
--- NOTE | 2018-06-10 10:25 | ED PDOC ---
Arrival/HPI - General Chief Complaint: Chest Pain Time Seen by Provider: 06/10/18 10:21 Historian: Patient - History of Present Illness Narrative History of Present Illness (Text): 06/10/18 10:24 48 year old male, whose PMH includes hypertension, hypercholesterolemia, and diabetes, who presents to the emergency department complaining of chest discomfort described as tightness since 2 days. Patient reports this symptom is associated with shortness of breath and dizziness. He notes while sleeping, the shortness of breath wakes him up and he feels like he has something "stuck in his chest". Patient admits to being a smoker (a pack a week) and also drinks around two six-packs on the weekends. Patient denies any fever, headache, nausea , vomiting, diarrhea, abdominal pain, lower extremity swelling, back pain, or other complaints. PMD: Dr. Jaime Time/Duration: < week Symptom Onset: Sudden Symptom Course: Unchanged Quality: Tightness Activities at Onset: Rest Context: Home Past Medical History - Provider Review Nursing Documentation Reviewed: Yes - Infectious Disease Hx of Infectious Diseases: None - Cardiac Hx Hypertension: Yes - Endocrine/Metabolic Hx Diabetes Mellitus Type 2: Yes - Musculoskeletal/Rheumatological Hx Falls: No - Psychiatric Hx Depression: No Hx Emotional Abuse: No Hx Physical Abuse: No Hx Substance Use: No - Surgical History Hx Orthopedic Surgery: Yes (LEFT KNEE) Other/Comment: hemorrhoidectomy - Anesthesia Hx Anesthesia: Yes Hx Anesthesia Reactions: No Hx Malignant Hyperthermia: No - Suicidal Assessment Feels Threatened In Home Enviroment: No Family/Social History - Physician Review Nursing Documentation Reviewed: Yes Family/Social History: Unknown Family HX Smoking Status: Light Smoker < 10 Cigarettes Daily Hx Alcohol Use: Yes Hx Substance Use: No Hx Substance Use Treatment: No Allergies/Home Meds Allergies/Adverse Reactions: Allergies No Known Allergies Allergy (Verified 02/23/18 13:14) Home Medications: Home Meds Medication Instructions Recorded Confirmed metFORMIN ER [glucoPHAGE XR] 500 mg PO BID 02/23/18 06/10/18 Atorvastatin [Lipitor] 20 mg PO HS 06/10/18 06/10/18 Losartan/Hydrochlorothiazide 1 tab PO DAILY 06/10/18 06/10/18 [Losartan-Hctz 100-25 mg Tab] Multivitamin [Daily Hussein] 1 tab PO DAILY 06/10/18 06/10/18 Review of Systems - Review of Systems Constitutional: absent: Fevers ENT: absent: Sinus Congestion Respiratory: SOB Cardiovascular: Chest Pain (tightness) Gastrointestinal: absent: Abdominal Pain, Diarrhea, Vomiting Genitourinary Male: absent: Dysuria Musculoskeletal: absent: Back Pain Skin: absent: Rash Neurological: Dizziness. absent: Headache Endocrine: absent: Diaphoresis Physical Exam Vital Signs Reviewed: Yes Vital Signs Temp Pulse Resp BP Pulse Ox 06/10/18 12:25 98 F 64 145/82 98 06/10/18 10:11 98.3 F 63 16 130/82 98 Temperature: Afebrile Blood Pressure: Normal Pulse: Regular Respiratory Rate: Normal Appearance: Positive for: Well-Appearing, Non-Toxic, Comfortable Pain Distress: None Mental Status: Positive for: Alert and Oriented X 3 - Systems Exam Head: Present: Atraumatic, Normocephalic Pupils: Present: PERRL Extroacular Muscles: Present: EOMI Conjunctiva: Present: Normal Respiratory/Chest: Present: Clear to Auscultation, Good Air Exchange. No: Respiratory Distress, Accessory Muscle Use, Wheezes, Decreased Breath Sounds, Rales, Retracting, Rhonchi Cardiovascular: Present: Regular Rate and Rhythm, Normal S1, S2. No: Murmurs Abdomen: Present: Normal Bowel Sounds. No: Tenderness, Distention, Peritoneal Signs, Rebound, Guarding Neurological: Present: GCS=15, CN II-XII Intact, Speech Normal, Normal Sensory Function, Normal Cerebellar Funct Skin: Present: Warm, Dry, Normal Color. No: Rashes Psychiatric: Present: Alert, Oriented x 3, Normal Insight, Normal Concentration Medical Decision Making ED Course and Treatment: 06/10/18 Impression: 48 year old male with unremarkable physical exam complaining of tightness on chest associated with shortness of breath and dizziness since 2 days. HTN, HLD, DM2, smoker w/ moderate risk for ACS. Will send trop. Likely will require obs for further eval given intermediate heart score. Low pretest wells, pt is a truck terminal manager. Will dimer. Plan: -- EKG -- Chest X-ray -- Labs -- Maalox and Pepcid -- Reassess and disposition Progress Notes: EKG: Ordered, reviewed, and independently interpreted the EKG. Rate : 62 BPM Rhythm : NSR Interpretation : Flat T waves Lead 3 and AVF. No STEMI Comparison : No previous EKG for comparison. 06/10/2018 Patients Well's score is low. His heart score is 4 given, EKG, risk factors, and age. 06/10/18 12:15 trop and Dimer are negative. Given the results I advised patient to remain in observation for echo-cardiogram and stress test, as well consultation with cardiology. Given current lab findings, patient states that he feels better and wants to go home. The patient is choosing to leave against medical advice. I have personally explained to the patient that choosing to do so may result in permanent bodily harm or . I have discussed at great length that without further evaluation and monitoring there may be unforeseen circumstances and/or deterioration causing permanent bodily harm or as a result of their choice. The patient is alert, oriented, and shows the mental capacity to make clear decisions regarding the patients health care at this time. The patient continues to wish to leave against medical advice. In light of the patients decision to leave against medical advice, follow-up has been arranged and the patient is aware of the importance to following up as instructed. The patient has been advised that they should return to the emergency room immediately if they change their mind at any time, or if their condition begins to change or worsen in any way. 06/10/18 12:48 - Lab Interpretations Lab Results: 06/10/18 10:34 06/10/18 10:34 Lab Results 06/10/18 10:43: D-Dimer, Quantitative < 200 06/10/18 10:34: Sodium 142, Potassium 3.7, Chloride 104, Carbon Dioxide 30, Anion Gap 11, BUN 18, Creatinine 1.0, Est GFR ( Amer) > 60, Est GFR (Non- Af Amer) > 60, Random Glucose 102, Calcium 9.5, Total Bilirubin 1.5 H, AST 42, ALT 43, Alkaline Phosphatase 70, Troponin I < 0.01, NT-Pro-B Natriuret Pep 32.3 , Total Protein 7.2, Albumin 4.1, Globulin 3.0, Albumin/Globulin Ratio 1.4 06/10/18 10:34: WBC 9.1 D, RBC 4.61, Hgb 13.1 L, Hct 36.1 L, MCV 78.3 L, MCH 28.4, MCHC 36.3, RDW 14.0, Plt Count 219, MPV 9.0, Gran % 43.0 L, Lymph % (Auto ) 45.4 H, [place] % (Auto) 11.1 H, Eos % (Auto) 0.3 L, Baso % (Auto) 0.2, Gran # 3.89, Lymph # (Auto) 4.1 H, [place] # (Auto) 1.0 H, Eos # (Auto) 0.0, Baso # (Auto ) 0.02 I have reviewed the lab results: Yes - RAD Interpretation Radiology Orders: 06/10/18 10:43 CHEST TWO VIEWS (PA/LAT) [RAD] Stat Kettle Skimmer: Radiologist - EKG Interpretation Interpreted by ED Physician: Yes Type: 12 lead EKG - Medication Orders Current Medication Orders: Discontinued Medications Al Hydrox/Mg Hydrox/Simethicone (Maalox Plus 30 Ml) 30 ml PO STAT STA Stop: 06/10/18 10:45 Last Admin: 06/10/18 11:21 Dose: 30 ml Famotidine (Pepcid) 20 mg IVP STAT STA Stop: 06/10/18 10:45 Last Admin: 06/10/18 11:20 Dose: 20 mg IVP Administration Document 06/10/18 11:20 SRE (Rec: 06/10/18 11:20 SRE [id number]) Charges for Administration # of IVP Administrations 1 - Scribe Statement The provider has reviewed the documentation as recorded by the Scribe Kelly Aparicio Provider Scribe Attestation: All medical record entries made by the Scribe were at my direction and personally dictated by me. I have reviewed the chart and agree that the record accurately reflects my personal performance of the history, physical exam, medical decision making, and the department course for this patient. I have also personally directed, reviewed, and agree with the discharge instructions and disposition. Disposition/Present on Arrival - Present on Arrival Any Indicators Present on Arrival: No History of DVT/PE: No History of Uncontrolled Diabetes: No Urinary Catheter: No History of Decub. Ulcer: No History Surgical Site Infection Following: None - Disposition Have Diagnosis and Disposition been Completed?: Yes Diagnosis: Chest pain Disposition: AGAINST MEDICAL ADVICE Disposition Time: 11:00 Condition: STABLE Discharge Instructions (ExitCare): Chest Pain, Chest Pain (ED) Additional Instructions: COME BACK TO EMERGENCY DEPARTMENT IF YOU CHANGE YOUR MIND OR IF YOU CONTINUE HAVING CHEST PAIN. SEE A ADVANCED PRACTICE PSYCHIATRIC NURSE AND YOUR PRIMARY CARE DOCTOR SOON POSSIBLE. Referrals: Alexi Miles MD [Staff Provider] - Follow up with primary Forms: [employer] (Turkish)
[2018-06-10 10:43] LABS: BASO # 0.02 K/mm3 (0.0-2.0); BASO % 0.2 % (0.0-3.0); EOS % 0.3 % (1.5-5.0); GRAN # 3.89 (1.4-6.5); HEMOGLOBIN 13.1 g/dL (14.0-18.0); LYMPH # 4.1 (1.2-3.4); LYMPH % 45.4 % (22.0-35.0); MEAN CELL VOLUME 78.3 fl (80.0-105.0); MEAN CORPUSCULAR HEMOGLOBIN 28.4 pg (25.0-35.0); MEAN CORPUSCULAR HGB CONC 36.3 g/dl (31.0-37.0); MONO % 11.1 % (1.0-6.0); RBC 4.61 10^6/uL (3.5-6.1); WHITE BLOOD COUNT 9.1 10^3/ul (4.5-11.0)
[2018-06-10] MEDS ORDERED: Alum-Mag Hydrox-Simethicone Susp (30 mL) PO STA (10:44)
[2018-06-10 10:54] LABS: ALB/GLOB RATIO 1.4 (1.1-1.8); ALBUMIN 4.1 g/dL (3.0-4.8); ALT/SGPT 43 U/L (7-56); AST/SGOT 42 U/L (17-59); BLOOD UREA NITROGEN 18 mg/dL (7-21); CALCIUM 9.5 mg/dL (8.4-10.5); GFR AFRICAN-AMERICAN > 60; GFR NON-AFRICAN AMERICAN > 60
[2018-06-10 11:05] LABS: B-TYPE NATRIURETIC PEPTIDE 32.3 pg/mL (0-450); TROPONIN I < 0.01 ng/mL
[2018-06-10 12:33] VITALS: BP 145/82; PULSE 64; TEMP 98
--- NOTE | 2018-06-10 12:33 | RAD ---
Date of service: 06/10/2018 HISTORY: chest pain COMPARISON: 01/26/2017 TECHNIQUE: Chest PA and lateral FINDINGS: LUNGS: No active pulmonary disease. PLEURA: No significant pleural effusion identified. No pneumothorax apparent. CARDIOVASCULAR: No radiographic findings to suggest acute or significant cardiovascular disease. OSSEOUS STRUCTURES: No significant abnormalities. VISUALIZED UPPER ABDOMEN: Normal. OTHER FINDINGS: None. IMPRESSION: No active disease. No significant interval change compared to the prior examination(s). Concordant results with the preliminary interpretation rendered by the emergency department physician procedure.
--- NOTE | 2018-06-10 17:51 | CARD ---
APPROVED REPORT Date of service: 06/10/2018 EKG Measurement Heart [id number] <Conclusion> Normal sinus rhythm Nonspecific T wave abnormality Prolonged QT High Voltage LVH.
== END 2018-06-10 12:25 | disposition left against medical advice (07) ==
LOC: ED 10:11
DX: R07.9 Chest pain, unspecified (principal); I10 Essential (primary) hypertension; E78.00 Pure hypercholesterolemia, unspecified; E11.9 Type 2 diabetes mellitus without complications; F17.210 Nicotine dependence, cigarettes, uncomplicated

== ENCOUNTER 2018-06-10 22:51 | Observation (INO) | payer MEDICAID ==
[2018-06-10 22:59] VITALS: BMI 29.2
--- NOTE | 2018-06-10 23:14 | ED PDOC ---
Arrival/HPI - General Chief Complaint: Chest Pain Time Seen by Provider: 06/10/18 22:56 Historian: Patient - History of Present Illness Narrative History of Present Illness (Text): 06/10/18 23:13 Hardik Callejas Jr is a 48 year old male smoker, whose past medical history includes hypertension, hypercholesterolemia, and diabetes, who presents to the emergency department complaining of right-sided chest pain for the past 3 days. Patient was seen in the emergency department earlier today for similar complaints, had a full work-up, and was advised admission to the hospital for further evaluation, however patient left against medical advice. Patient states he was seen by PMD today and was going to see his cytogeneticist but chest pain returned. Patient denies any fever, chills, abdominal pain, nausea, vomiting, diarrhea, urinary symptoms, back pain, neck pain, headache, dizziness, or any other complaints. Symptom Onset: Gradual Symptom Course: Unchanged Activities at Onset: Light Context: Home Past Medical History - Provider Review Nursing Documentation Reviewed: Yes - Infectious Disease Hx of Infectious Diseases: None - Cardiac Hx Hypertension: Yes - Endocrine/Metabolic Hx Diabetes Mellitus Type 2: Yes - Musculoskeletal/Rheumatological Hx Falls: No - Psychiatric Hx Depression: No Hx Emotional Abuse: No Hx Physical Abuse: No Hx Substance Use: No - Surgical History Hx Orthopedic Surgery: Yes (LEFT KNEE) Other/Comment: hemorrhoidectomy - Anesthesia Hx Anesthesia: Yes Hx Anesthesia Reactions: No Hx Malignant Hyperthermia: No - Suicidal Assessment Feels Threatened In Home Enviroment: No Family/Social History - Physician Review Nursing Documentation Reviewed: Yes Family/Social History: Unknown Family HX Smoking Status: Light Smoker < 10 Cigarettes Daily Hx Alcohol Use: Yes Hx Substance Use: No Hx Substance Use Treatment: No Allergies/Home Meds Allergies/Adverse Reactions: Allergies No Known Allergies Allergy (Verified 06/10/18 22:57) Home Medications: Home Meds Medication Instructions Recorded Confirmed metFORMIN ER [glucoPHAGE XR] 500 mg PO BID 02/23/18 06/10/18 Atorvastatin [Lipitor] 20 mg PO HS 06/10/18 06/10/18 Losartan/Hydrochlorothiazide 1 tab PO DAILY 06/10/18 06/10/18 [Losartan-Hctz 100-25 mg Tab] Multivitamin [Daily Hussein] 1 tab PO DAILY 06/10/18 06/10/18 Review of Systems - Physician Review All systems were reviewed & negative as marked: Yes - Review of Systems Constitutional: Normal. absent: Fevers Eyes: Normal ENT: Normal Respiratory: absent: Cough Cardiovascular: Chest Pain Gastrointestinal: Normal. absent: Abdominal Pain, Diarrhea, Nausea, Vomiting Genitourinary Male: Normal. absent: Dysuria, Frequency, Hematuria, Urinary Output Changes Musculoskeletal: Normal. absent: Back Pain, Neck Pain Skin: Normal. absent: Rash Neurological: Normal. absent: Headache, Dizziness Endocrine: Normal Hemo/Lymphatic: Normal Psychiatric: Normal Physical Exam Vital Signs Reviewed: Yes Vital Signs Temp Pulse Resp BP Pulse Ox 06/11/18 01:55 98.5 F 56 L 20 138/100 H 06/11/18 01:40 18 98 06/10/18 22:59 83 18 99 Temperature: Afebrile Blood Pressure: Normal Pulse: Regular Respiratory Rate: Normal Appearance: Positive for: Well-Appearing, Non-Toxic, Comfortable Pain Distress: None Mental Status: Positive for: Alert and Oriented X 3 - Systems Exam Head: Present: Atraumatic, Normocephalic Pupils: Present: PERRL Extroacular Muscles: Present: EOMI Conjunctiva: Present: Normal Mouth: Present: Moist Mucous Membranes Neck: Present: Normal Range of Motion Respiratory/Chest: Present: Clear to Auscultation, Good Air Exchange. No: Respiratory Distress, Accessory Muscle Use Cardiovascular: Present: Regular Rate and Rhythm, Normal S1, S2. No: Murmurs Abdomen: No: Tenderness, Distention, Peritoneal Signs Back: Present: Normal Inspection Upper Extremity: Present: Normal Inspection. No: Cyanosis, Edema Lower Extremity: Present: Normal Inspection. No: Edema Neurological: Present: GCS=15, CN II-XII Intact, Speech Normal Skin: Present: Warm, Dry, Normal Color. No: Rashes Psychiatric: Present: Alert, Oriented x 3, Normal Insight, Normal Concentration Medical Decision Making ED Course and Treatment: 06/10/18 23:14 Impression: 48 year old male complaining of right-sided chest pain. Plan: -- EKG -- Chest X-Ray -- Labs, cardiac enzymes -- UA -- Reassess and disposition Prior Visits: Notes and results from previous visits were reviewed. Progress Notes: Reviewed EKG, NSR at [address]-segment elevations or depressions, no T- wave inversions, normal intervals. 06/10/18 23:[address] Carranza, who is aware and agrees with plan. Accepts pt in to hospitalist service. Pt will go to Telemetry observation for chest pain. - EKG Interpretation Interpreted by ED Physician: Yes Type: 12 lead EKG - Medication Orders Current Medication Orders: Acetaminophen (Tylenol 325mg Tab) 650 mg PO Q6H PRN PRN Reason: Fever >100.4 F Aspirin (Ecotrin) 81 mg PO 0800 [facility] Last Admin: 06/11/18 01:23 Dose: 81 mg Atorvastatin Calcium (Lipitor) 20 mg PO HS ANALILIA Heparin Sodium (Porcine) (Heparin) 5,000 units SC Q8 ANALILIA PRN Reason: Protocol Last Admin: 06/11/18 05:58 Dose: 5,000 units Subcutaneous Administrations Document 06/11/18 05:58 LGA (Rec: 06/11/18 05:58 LGA [id number]) Injection Site MAR Injection Site Left Abdomen Charges for Administration # of Subcutaneous Administrations 1 Hydrochlorothiazide (Hydrodiuril) 25 mg PO DAILY ANALILIA Insulin Human Regular (Humulin R Low) 0 units SC ACHS ANALILIA PRN Reason: Protocol Losartan Potassium (Cozaar) 100 mg PO DAILY ANALILIA Pantoprazole Sodium (Protonix Ec Tab) 40 mg PO 0600 ANALILIA Last Admin: 06/11/18 05:58 Dose: 40 mg Discontinued Medications Ibuprofen (Motrin Tab) 600 mg PO STAT STA Stop: 06/11/18 00:33 Last Admin: 06/11/18 01:21 Dose: 600 mg MAR Pain/Vitals Document 06/11/18 01:21 SS (Rec: 06/11/18 01:23 SS [id number]) Pain Reassessment Is This A Pain ReAssessment? No Sleep Is patient sleeping during reassessment? No Presence of Pain Presence of Pain Yes Location Left, Right or Bilateral Right Pain Location Body Site Chest - Scribe Statement The provider has reviewed the documentation as recorded by the Bisi Liang Provider Scribe Attestation: All medical record entries made by the Scribe were at my direction and personally dictated by me. I have reviewed the chart and agree that the record accurately reflects my personal performance of the history, physical exam, medical decision making, and the department course for this patient. I have also personally directed, reviewed, and agree with the discharge instructions and disposition. Disposition/Present on Arrival - Present on Arrival Any Indicators Present on Arrival: No History of DVT/PE: No History of Uncontrolled Diabetes: No Urinary Catheter: No History of Decub. Ulcer: No History Surgical Site Infection Following: None - Disposition Have Diagnosis and Disposition been Completed?: Yes Diagnosis: Chest pain Disposition: HOSPITALIZED Disposition Time: 23:15 Condition: FAIR
[2018-06-11 00:11] LABS: BASO # 0.02 K/mm3 (0.0-2.0); BASO % 0.3 % (0.0-3.0); EOS # 0.1 (0.0-0.7); EOS % 0.6 % (1.5-5.0); GRAN # 2.37 (1.4-6.5); GRAN % 29.8 % (50.0-68.0); HEMOGLOBIN 13.2 g/dL (14.0-18.0); LYMPH # 4.7 (1.2-3.4); LYMPH % 59.1 % (22.0-35.0); MEAN CELL VOLUME 78.4 fl (80.0-105.0); MEAN CORPUSCULAR HEMOGLOBIN 28.8 pg (25.0-35.0); MEAN CORPUSCULAR HGB CONC 36.8 g/dl (31.0-37.0); MEAN PLATELET VOLUME 9.5 fl (7.0-11.0); MONO # 0.8 (0.1-0.6); MONO % 10.2 % (1.0-6.0); RBC 4.58 10^6/uL (3.5-6.1); RED CELL DISTRIBUTION WIDTH 14.2 % (11.5-14.5); WHITE BLOOD COUNT 7.9 10^3/ul (4.5-11.0)
[2018-06-11 00:19] LABS: ALB/GLOB RATIO 1.5 (1.1-1.8); ALBUMIN 4.4 g/dL (3.0-4.8); ALT/SGPT 39 U/L (7-56); AST/SGOT 41 U/L (17-59); BLOOD UREA NITROGEN 15 mg/dL (7-21); CALCIUM 9.6 mg/dL (8.4-10.5); GFR AFRICAN-AMERICAN > 60; GFR NON-AFRICAN AMERICAN > 60
[2018-06-11 00:23] LABS: INR 0.98; PARTIAL THROMBOPLASTIN TIME 32.4 Seconds (25.1-36.5); PROTHROMBIN TIME 11.2 SECONDS (9.4-12.5)
--- NOTE | 2018-06-11 00:28 | CP.PCM.PN ---
Subjective - Date & Time of Evaluation Date of Evaluation: 06/11/18 Time of Evaluation: 00:26 - Subjective Subjective: Assessment Atypical chest pain, likely muscular strain from pushing car, normal ekg, and troponin 2 days post symptoms H/o HTN, dm on yo Tobacco abuse Plan Serial trop Dc if above neg NSAIDS prn Counselled about tobacco cessation Objective - Vital Signs/Intake and Output Vital Signs (last 24 hours): Temp Pulse Resp BP Pulse Ox 83 18 99 06/10/18 22:59 06/10/18 22:59 06/10/18 22:59 - Labs Labs: 06/10/18 23:52 06/10/18 23:52 PT 11.2 SECONDS (9.4-12.5) 06/10/18 23:52 INR 0.98 06/10/18 23:52 APTT 32.4 Seconds (25.1-36.5) 06/10/18 23:52
[2018-06-11 00:30] LABS: TROPONIN I < 0.01 ng/mL
[2018-06-11 00:59] LABS: CK-MB 2.8 ng/mL (0.0-3.6)
--- NOTE | 2018-06-11 03:25 | CP.PCM.HP ---
History of Present Illness - History of Present Illness History of Present Illness: History and Physical for hospitalist team Pedro Lovelace PGY2 Chief Complaint: Right sided chest pain with radiation to right back HPI: Patient is a 48 M with history of NIDDM, hyperlipidemia, hypertension who presents with complaints of right sided chest pain with radiation to back for the past 2 days which began after he was pushing a car up a hill. Patient states he has never experienced this pain before. He described the pain as a constant discomfort, rating it a current 5/10, with exacerbation on movement and upon palpation. States he has not taken any medication for pain relief. He endorses shortness of breath when he lays in certain positions due to the pain. Patient states he has an appointment set with his oven tender bagels on 06/11 but decided to come to the emergency department due to pain being persistent. Denies abdominal pain, nausea, vomiting, diarrhea, fevers, chills, headache, cough. PMD: Dr. Jaime Slasher Machine Operator: Patient cannot recall Surgical Hx: Left knee surgery Family history: Father-unknown, Mother- when patient was 6; cause of unknown Allergies: NKDA Social history: 1 pack per week for 33+ years, social alcohol use, denies illicit drug use, plays basketball often, physically active EKG: NSR, no ST elevations Labs: Troponins negative x 1 Present on Admission - Present on Admission Any Indicators Present on Admission: No Review of Systems - Constitutional Constitutional: absent: Chills, Fever, Frequent Falls - EENT Eyes: absent: Blurred Vision - Cardiovascular Cardiovascular: Chest Pain, Dyspnea - Respiratory Respiratory: absent: Cough - Gastrointestinal Gastrointestinal: absent: Abdominal Pain, Diarrhea, Nausea, Vomiting - Genitourinary Genitourinary: absent: Dysuria - Musculoskeletal Musculoskeletal: Back Pain - Neurological Neurological: absent: Confusion - Psychiatric Psychiatric: absent: Anxiety Past Patient History - Infectious Disease Hx of Infectious Diseases: None - Past Social History Smoking Status: Light Smoker < 10 Cigarettes Daily - CARDIAC Hx Hypertension: Yes - ENDOCRINE/METABOLIC Hx Diabetes Mellitus Type 2: Yes - MUSCULOSKELETAL/RHEUMATOLOGICAL Hx Falls: No - PSYCHIATRIC Hx Depression: No Hx Emotional Abuse: No Hx Physical Abuse: No Hx Substance Use: No - SURGICAL HISTORY Hx Orthopedic Surgery: Yes (LEFT KNEE) Other/Comment: hemorrhoidectomy - ANESTHESIA Hx Anesthesia: Yes Hx Anesthesia Reactions: No Hx Malignant Hyperthermia: No Meds Allergies/Adverse Reactions: Allergies Allergy/AdvReac Type Severity Reaction Status Date / Time No Known Allergies Allergy Verified 06/10/18 22:57 Physical Exam - Constitutional Appears: Non-toxic - Head Exam Head Exam: ATRAUMATIC, NORMAL INSPECTION, NORMOCEPHALIC - Eye Exam Eye Exam: EOMI, Normal appearance - ENT Exam ENT Exam: Mucous Membranes Moist, Normal Exam - Neck Exam Neck exam: Positive for: Normal Inspection - Respiratory Exam Respiratory Exam: Clear to Auscultation Bilateral, NORMAL BREATHING PATTERN. absent: Rhonchi, Wheezes - Cardiovascular Exam Cardiovascular Exam: REGULAR RHYTHM, +S1, +S2 - GI/Abdominal Exam GI & Abdominal Exam: Normal Bowel Sounds, Soft - Extremities Exam Extremities exam: Positive for: normal inspection - Back Exam Back exam: paraspinal tenderness - Psychiatric Exam Psychiatric exam: Normal Affect, Normal Mood - Skin Skin Exam: Intact, Normal Color, Warm Results - Vital Signs Recent Vital Signs: Last Vital Signs Temp Pulse 83 06/10/18 22:59 Resp 18 06/10/18 22:59 BP Pulse Ox 99 06/10/18 22:59 - Labs Result Diagrams: 06/10/18 23:52 06/10/18 23:52 Labs: Laboratory Results - last 24 hr 06/10/18 06/10/18 06/10/18 23:52 23:52 23:52 WBC 7.9 RBC 4.58 Hgb 13.2 L Hct 35.9 L MCV 78.4 L MCH 28.8 MCHC 36.8 RDW 14.2 Plt Count 235 MPV 9.5 Gran % 29.8 L Lymph % (Auto) 59.1 H Nicholas % (Auto) 10.2 H Eos % (Auto) 0.6 L Baso % (Auto) 0.3 Gran # 2.37 Lymph # (Auto) 4.7 H Nicholas # (Auto) 0.8 H Eos # (Auto) 0.1 Baso # (Auto) 0.02 PT 11.2 INR 0.98 APTT 32.4 Sodium 138 Potassium 3.9 Chloride 101 Carbon Dioxide 27 Anion Gap 14 BUN 15 Creatinine 0.9 Est GFR ( Amer) > 60 Est GFR (Non-Af Amer) > 60 Random Glucose 88 Calcium 9.6 Magnesium 2.1 Total Bilirubin 1.4 H AST 41 ALT 39 Alkaline Phosphatase 68 Lactate Dehydrogenase 557 Total Creatine Kinase 502 H CK-MB (CK-2) 2.8 CK-MB (CK-2) % Cancelled Troponin I < 0.01 Total Protein 7.3 Albumin 4.4 Globulin 2.9 Albumin/Globulin Ratio 1.5 TSH 3rd Generation 06/10/18 23:52 WBC RBC Hgb Hct MCV MCH MCHC RDW Plt Count MPV Gran % Lymph % (Auto) Nicholas % (Auto) Eos % (Auto) Baso % (Auto) Gran # Lymph # (Auto) Nicholas # (Auto) Eos # (Auto) Baso # (Auto) PT INR APTT Sodium Potassium Chloride Carbon Dioxide Anion Gap BUN Creatinine Est GFR ( Amer) Est GFR (Non-Af Amer) Random Glucose Calcium Magnesium Total Bilirubin AST ALT Alkaline Phosphatase Lactate Dehydrogenase Total Creatine Kinase CK-MB (CK-2) CK-MB (CK-2) % Troponin I Total Protein Albumin Globulin Albumin/Globulin Ratio TSH 3rd Generation 2.54 Assessment & Plan - Assessment and Plan (Free Text) Assessment: Patient is a 48 M with history of NIDDM, hyperlipidemia, hypertension who presents with complaints of right sided chest pain with radiation to back for the past 2 days which began after he was pushing a car up a hill. Plan: Chest Pain ACS r/o -Chest pain is reproducible upon palpation as well as paraspinal tenderness -Cardiology Consulted -EKG series -Trend troponins, first set negative -Aspirin started -Will resume home antihypertensives -Lipid panel, HgA1c, PT/PTT/INR -Echocardiogram deferred due to patient's functional capacity (active plays basketball) Smoking cessation -Discussed with patient harmful effects of cigarette smoke on health GI/DVT ppx: Protonix/Heparin
[2018-06-11 04:04] VITALS: BP 138/100
[2018-06-11 05:41] LABS: HEMOGLOBIN 12.4 g/dL (14.0-18.0); MEAN CELL VOLUME 78.5 fl (80.0-105.0); MEAN CORPUSCULAR HEMOGLOBIN 28.6 pg (25.0-35.0); MEAN CORPUSCULAR HGB CONC 36.5 g/dl (31.0-37.0); MEAN PLATELET VOLUME 9.1 fl (7.0-11.0); RBC 4.33 10^6/uL (3.5-6.1); RED CELL DISTRIBUTION WIDTH 13.8 % (11.5-14.5); WHITE BLOOD COUNT 7.3 10^3/ul (4.5-11.0)
[2018-06-11 05:49] LABS: BLOOD UREA NITROGEN 16 mg/dL (7-21); CALCIUM 9.3 mg/dL (8.4-10.5); GFR AFRICAN-AMERICAN > 60; GFR NON-AFRICAN AMERICAN > 60; HDL CHOLESTEROL 46 mg/dL (29-60)
[2018-06-11 05:56] LABS: PARTIAL THROMBOPLASTIN TIME 35.5 Seconds (25.1-36.5); PROTHROMBIN TIME 11.5 SECONDS (9.4-12.5)
[2018-06-11 05:58] LABS: TROPONIN I < 0.01 ng/mL
[2018-06-11 05:59] LABS: LDL CHOLESTEROL 55 mg/dL (0-129)
[2018-06-11] MEDS ORDERED: Pantoprazole 40 mg EC Tab PO SCH (06:00)
[2018-06-11 06:15] VITALS: RESP 18; TEMP 97.8; O2SAT 99
[2018-06-11] MEDS ORDERED: Insulin Reg-LOW-Coverage SC SCH (07:30)
[2018-06-11] MEDS ORDERED: Potassium Chloride 20 mEq ER Tab PO ONE (07:35)
[2018-06-11] MEDS ORDERED: Non Formulary Medication (Losartan/Hydrochlorothiazide [Losartan-Hctz 100-25 Mg Tab] 1 TAB PO SCH (10:00)
--- NOTE | 2018-06-11 10:07 | CARD ---
APPROVED REPORT Date of service: 06/11/2018 EKG Measurement Heart [id number] <Conclusion> Normal sinus rhythm Normal ECG
--- NOTE | 2018-06-11 10:10 | CARD ---
APPROVED REPORT Date of service: 06/10/2018 EKG Measurement Heart [id number] <Conclusion> Normal sinus rhythm Normal ECG
[2018-06-11] MEDS ORDERED: Sodium Chloride 0.9% 1,000 ML IV ONE (10:15)
[2018-06-11 10:27] VITALS: PULSE 74
--- NOTE | 2018-06-11 11:47 | CP.PCM.DIS ---
<Cornell Curiel - Last Filed: 06/11/18 12:49> Provider - Provider Date of Admission: 06/10/18 23:20 Attending physician: Jo Manuel MD Primary care physician: Mihaela Jaime Consults: Cardiology Time Spent in preparation of Discharge (in minutes): 30 Hospital Course - Lab Results Lab Results: Most Recent Lab Values WBC 7.3 10^3/ul (4.5-11.0) 06/11/18 05:00 RBC 4.33 10^6/uL (3.5-6.1) 06/11/18 05:00 Hgb 12.4 g/dL (14.0-18.0) L 06/11/18 05:00 Hct 34.0 % (42.0-52.0) L 06/11/18 05:00 MCV 78.5 fl (80.0-105.0) L 06/11/18 05:00 MCH 28.6 pg (25.0-35.0) 06/11/18 05:00 MCHC 36.5 g/dl (31.0-37.0) 06/11/18 05:00 RDW 13.8 % (11.5-14.5) 06/11/18 05:00 Plt Count 207 10^3/uL (120.0-450.0) 06/11/18 05:00 MPV 9.1 fl (7.0-11.0) 06/11/18 05:00 Gran % 29.8 % (50.0-68.0) L 06/10/18 23:52 Lymph % (Auto) 59.1 % (22.0-35.0) H 06/10/18 23:52 [place] % (Auto) 10.2 % (1.0-6.0) H 06/10/18 23:52 Eos % (Auto) 0.6 % (1.5-5.0) L 06/10/18 23:52 Baso % (Auto) 0.3 % (0.0-3.0) 06/10/18 23:52 Gran # 2.37 (1.4-6.5) 06/10/18 23:52 Lymph # (Auto) 4.7 (1.2-3.4) H 06/10/18 23:52 [place] # (Auto) 0.8 (0.1-0.6) H 06/10/18 23:52 Eos # (Auto) 0.1 (0.0-0.7) 06/10/18 23:52 Baso # (Auto) 0.02 K/mm3 (0.0-2.0) 06/10/18 23:52 PT 11.5 SECONDS (9.4-12.5) 06/11/18 05:00 INR 1.00 06/11/18 05:00 APTT 35.5 Seconds (25.1-36.5) 06/11/18 05:00 Sodium 137 mmol/L (132-148) 06/11/18 05:00 Potassium 3.4 mmol/L (3.6-5.0) L 06/11/18 05:00 Chloride 101 mmol/L (98-107) 06/11/18 05:00 Carbon Dioxide 29 mmol/L (21-33) 06/11/18 05:00 Anion Gap 11 (10-20) 06/11/18 05:00 BUN 16 mg/dL (7-21) 06/11/18 05:00 Creatinine 1.0 mg/dl (0.8-1.5) 06/11/18 05:00 Est GFR ( Amer) > 60 06/11/18 05:00 Est GFR (Non-Af Amer) > 60 06/11/18 05:00 POC Glucose (mg/dL) 92 mg/dL (65-110) 06/11/18 07:45 Random Glucose 97 mg/dL (70-110) 06/11/18 05:00 Calcium 9.3 mg/dL (8.4-10.5) 06/11/18 05:00 Magnesium 2.1 mg/dL (1.7-2.2) 06/10/18 23:52 Total Bilirubin 1.4 mg/dL (0.2-1.3) H 06/10/18 23:52 AST 41 U/L (17-59) 06/10/18 23:52 ALT 39 U/L (7-56) 06/10/18 23:52 Alkaline Phosphatase 68 U/L (38-126) 06/10/18 23:52 Lactate Dehydrogenase 557 U/L (333-699) 06/10/18 23:52 Total Creatine Kinase 502 U/L (35-230) H 06/10/18 23:52 CK-MB (CK-2) 2.8 ng/mL (0.0-3.6) 06/10/18 23:52 CK-MB (CK-2) % Cancelled 06/10/18 23:52 Troponin I < 0.01 ng/mL 06/11/18 05:00 Total Protein 7.3 g/dL (5.8-8.3) 06/10/18 23:52 Albumin 4.4 g/dL (3.0-4.8) 06/10/18 23:52 Globulin 2.9 gm/dL 06/10/18 23:52 Albumin/Globulin Ratio 1.5 (1.1-1.8) 06/10/18 23:52 Triglycerides 235 mg/dL (35-160) H 06/11/18 05:00 Cholesterol 133 mg/dL (130-200) 06/11/18 05:00 LDL Cholesterol Direct 55 mg/dL (0-129) 06/11/18 05:00 HDL Cholesterol 46 mg/dL (29-60) 06/11/18 05:00 TSH 3rd Generation 2.54 mIU/mL (0.46-4.68) 06/10/18 23:52 - Hospital Course Hospital Course: On asmission: 48 y/o male with history of HTN, DM2, hyperlipidemia, who presents with complaints of right sided chest pain with radiation to back for the past 2 days which began after he was pushing a car up a hill. Pain is reproducible on palpation, worsen during inspiration. Patient admitted to medical floor to role out acute coronary syndrome given the patient age, history of DM and HTN. Hospital course: Patient was dmitted to medical floor to role out acute coronary syndrome although chest pain at presentation is muscloskeletal in nature. Pain was reproducible upon palpation, paraspinal point tenderness and increased with respiration. Aspirin started, EKG showed NSR with no ST elevation. Troponin trended and was negative x3. Chest X ray did not show acute cardiopulmonary events. Home antihypertensive medications resumed. Lipid panel, HgA1c, PT/PTT/ INR ordered. Patient was given Motrin and pain subsided. Patient smokes 1 pack of cigatettes per week, smoking cessation discussed with patient harmful effects of cigarette smoke on health. Cardiology consulted given the patient's risk factors but patient left before being seen by securities counselor. Patient found to have elevated creatine kinase of 502 likely due to muscle injury, no urinary symptoms reported by patient. He was given IV fluids to improve urinary clearance. Potassium was low and was give oral to replete it. Upon discharge: Patient left against medical advice. He was scheduled to see securities counselor to further assessment given his risk factors. Risks of leaving without being medically optimized were explained to the patient who decided to leave immediately. Patient was advised to follow up with his primary care physician and securities counselor as soon as he leave the hospital. Patient was adviced to visit nearest emergency department should he feel chest pain, palpitation or shortness of breath. - Date & Time of H&P Date of H&P: 06/11/18 Time of H&P: 11:15 Discharge Exam - Head Exam Head Exam: ATRAUMATIC, NORMAL INSPECTION, NORMOCEPHALIC - Eye Exam Eye Exam: EOMI, Normal appearance, PERRL Pupil Exam: NORMAL ACCOMODATION, PERRL - GI/Abdominal Exam GI & Abdominal Exam: Normal Bowel Sounds - Rectal Exam Rectal Exam: NORMAL INSPECTION - Back Exam Back exam: absent: CVA tenderness (L), CVA tenderness (R) - Neurological Exam Neurological exam: Alert, CN II-XII Intact, Normal Gait, Oriented x3, Reflexes Normal - Psychiatric Exam Psychiatric exam: Normal Affect, Normal Mood - Skin Skin Exam: Dry, Intact, Normal Color, Warm Discharge Plan - Follow Up Plan Condition: FAIR Disposition: AGAINST MEDICAL ADVICE Instructions: Chest Pain (DC), Chest Pain (GEN) Referrals: Mihaela Jaime MD [Primary Care Provider] - <Liv Carrasquillo R - Last Filed: 06/14/18 15:16> Provider - Provider Date of Admission: 06/10/18 23:20 Attending physician: Jo Manuel MD Primary care physician: Mihaela Jaime [facility] Course - Lab Results Lab Results: Most Recent Lab Values WBC 7.3 10^3/ul (4.5-11.0) 06/11/18 05:00 RBC 4.33 10^6/uL (3.5-6.1) 06/11/18 05:00 Hgb 12.4 g/dL (14.0-18.0) L 06/11/18 05:00 Hct 34.0 % (42.0-52.0) L 06/11/18 05:00 MCV 78.5 fl (80.0-105.0) L 06/11/18 05:00 MCH 28.6 pg (25.0-35.0) 06/11/18 05:00 MCHC 36.5 g/dl (31.0-37.0) 06/11/18 05:00 RDW 13.8 % (11.5-14.5) 06/11/18 05:00 Plt Count 207 10^3/uL (120.0-450.0) 06/11/18 05:00 MPV 9.1 fl (7.0-11.0) 06/11/18 05:00 Gran % 29.8 % (50.0-68.0) L 06/10/18 23:52 Lymph % (Auto) 59.1 % (22.0-35.0) H 06/10/18 23:52 [place] % (Auto) 10.2 % (1.0-6.0) H 06/10/18 23:52 Eos % (Auto) 0.6 % (1.5-5.0) L 06/10/18 23:52 Baso % (Auto) 0.3 % (0.0-3.0) 06/10/18 23:52 Gran # 2.37 (1.4-6.5) 06/10/18 23:52 Lymph # (Auto) 4.7 (1.2-3.4) H 06/10/18 23:52 [place] # (Auto) 0.8 (0.1-0.6) H 06/10/18 23:52 Eos # (Auto) 0.1 (0.0-0.7) 06/10/18 23:52 Baso # (Auto) 0.02 K/mm3 (0.0-2.0) 06/10/18 23:52 PT 11.5 SECONDS (9.4-12.5) 06/11/18 05:00 INR 1.00 06/11/18 05:00 APTT 35.5 Seconds (25.1-36.5) 06/11/18 05:00 Sodium 137 mmol/L (132-148) 06/11/18 05:00 Potassium 3.4 mmol/L (3.6-5.0) L 06/11/18 05:00 Chloride 101 mmol/L (98-107) 06/11/18 05:00 Carbon Dioxide 29 mmol/L (21-33) 06/11/18 05:00 Anion Gap 11 (10-20) 06/11/18 05:00 BUN 16 mg/dL (7-21) 06/11/18 05:00 Creatinine 1.0 mg/dl (0.8-1.5) 06/11/18 05:00 Est GFR ( Amer) > 60 06/11/18 05:00 Est GFR (Non-Af Amer) > 60 06/11/18 05:00 POC Glucose (mg/dL) 92 mg/dL (65-110) 06/11/18 07:45 Random Glucose 97 mg/dL (70-110) 06/11/18 05:00 Hemoglobin A1c 6.0 % (4.2-6.5) 06/10/18 23:52 Calcium 9.3 mg/dL (8.4-10.5) 06/11/18 05:00 Magnesium 2.1 mg/dL (1.7-2.2) 06/10/18 23:52 Total Bilirubin 1.4 mg/dL (0.2-1.3) H 06/10/18 23:52 AST 41 U/L (17-59) 06/10/18 23:52 ALT 39 U/L (7-56) 06/10/18 23:52 Alkaline Phosphatase 68 U/L (38-126) 06/10/18 23:52 Lactate Dehydrogenase 557 U/L (333-699) 06/10/18 23:52 Total Creatine Kinase 502 U/L (35-230) H 06/10/18 23:52 CK-MB (CK-2) 2.8 ng/mL (0.0-3.6) 06/10/18 23:52 CK-MB (CK-2) % Cancelled 06/10/18 23:52 Troponin I < 0.01 ng/mL 06/11/18 05:00 Total Protein 7.3 g/dL (5.8-8.3) 06/10/18 23:52 Albumin 4.4 g/dL (3.0-4.8) 06/10/18 23:52 Globulin 2.9 gm/dL 06/10/18 23:52 Albumin/Globulin Ratio 1.5 (1.1-1.8) 06/10/18 23:52 Triglycerides 235 mg/dL (35-160) H 06/11/18 05:00 Cholesterol 133 mg/dL (130-200) 06/11/18 05:00 LDL Cholesterol Direct 55 mg/dL (0-129) 06/11/18 05:00 HDL Cholesterol 46 mg/dL (29-60) 06/11/18 05:00 TSH 3rd Generation 2.54 mIU/mL (0.46-4.68) 06/10/18 23:52 Attending/Attestation - Attestation I have personally seen and examined this patient.: Yes I have fully participated in the care of the patient.: Yes I have reviewed all pertinent clinical information, including history, physical exam and plan: Yes Notes (Text): Patient seen and examined by me with resident at 10:05AM 06/11/18. Case discussed with resident. Agree with above with following additions/corrections. Patient is a 48 year old male with past medical history significant for DM2, hyperlipidemia, and hypertension that presented to the emergency room with right sided chest pain with radiation to the back. Please see H&P for full details. Patient was admitted with right sided chest pain and tobacco abuse. Pain was reproducible. Cardiology was consulted. Troponins were within normal limits. ASA was started. Patient's home anti-hypertensives were resumed. Triglycerides were elevated. Patient was advised to diet and exercise. Patient stated his right chest pain was much better. Cardiology recommendations were pending. Patient decided he wanted to sign out against medical advice. Patient requested to sign out AGAINST MEDICAL ADVICE. This action is against my medical advice to the patient and the decision was made with informed refusal. The patient was told that further workup is necessary and a full explanation of the rationale was given. The risks of leaving were explained to the patient and include but are not limited to increased morbidity and mortality, , and worsening of known or unknown conditions. Patient was AAOX3 and was able to make this informed decision and understood the clinical situation and my explanation of the risks of leaving. The patient voluntarily accepted these risks and signed an AMA form. The patient was given the opportunity to ask questions and reconsider. The patient was encouraged to return to emergency room at any time for further care. He was advised to follow-up with his primary care doctor as soon as possible. Physical exam: Gen: Awake and alert sitting up in bed in no acute distress HEENT: Normocephalic, atraumatic. Extraocular muscles intact, pupils equal reactive. No scleral icterus. Oropharynx is pink and moist. No pharyngeal erythema or exudate appreciated. Neck is supple. Cardiovascular: Normal rhythm. Normal S1, S2. No murmurs, rubs, or gallops appreciated Pulmonary: Normal respiratory effort. No rhonchi, rales or wheezing appreciated. Gastrointestinal: Soft, nontender, nondistended, positive bowel sounds all 4 quadrants, no guarding. Musculoskeletal: Normal range of motion all extremities, no calf tenderness. No CVA tenderness. Positive anterior right chest wall tenderness. Central nervous system: AAO x 3. Dermatologic: Skin warm and dry Please see chart for full details.
== END 2018-06-11 10:30 | disposition left against medical advice (07) ==
LOC: ED 22:51 → ERH 23:20 → 2RNO 06-11 01:44
PROVIDERS: ADMIT Internal Medicine; ATTEND Internal Medicine
DX: R07.89 Other chest pain (principal); I10 Essential (primary) hypertension; E78.00 Pure hypercholesterolemia, unspecified; E11.9 Type 2 diabetes mellitus without complications; E78.5 Hyperlipidemia, unspecified; F17.210 Nicotine dependence, cigarettes, uncomplicated
CPT/HCPCS: 36415; 80048; 80053; 80061; 82550; 82553; 82948; 83036; 83615; 83735; 84443; 84484; 85025; 85027; 85610; 85730; 93005; 96372; 99285; G0378; J1644